=== PATIENT | female | born 1980 | race Two or more races ===

== ENCOUNTER 2024-12-29 15:48 | Emergency (ER) | payer MEDICAID, SELFPAY ==
[2024-12-29 15:49] VITALS: BMI 25.4
[2024-12-29 16:32] VITALS: BP 150/88; PULSE 84; RESP 18; TEMP 36.8; O2SAT 98
--- NOTE | 2024-12-29 16:44 | XR_ITS ---
Examination: CT soft tissue neck, with intravenous contrast. 2-D coronal reconstructions. 2-D sagittal reconstructions. Date and time of exam :December 29, 2024 1804 hours INDICATIONS: Left-sided neck swelling beginning 2 months ago. CTDI: vol (mGy):11.6 DLP: (mGycm):287 Technique: 1.25 mm axial sections of the neck of the obtained. Coronal and sagittal reconstructions have been obtained. Intravenous contrast administered 50 cc of Isovue 370. Low dose protocols were performed. One or more of the following dose reduction techniques were used; automated exposure control, adjustment of the mA and/or KV according to patient size, use of iterative reconstruction technique. 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
--- NOTE | 2024-12-29 16:46 | PD.EDSKIN ---
ED Skin Abcess FB-RME/HPI General Chief complaint: Skin/Abscess/Foreign Body Stated complaint: SWELLIING TO LEFT SIDE NECK Time Seen by Provider: 12/29/24 16:37 Arrival date/time: 12/29/24 15:48 RME / HPI RME / HPI narrative: 44-year-old female with history of diabetes hypertension is here today for atraumatic swelling in her left anterior neck for 2 months. She has no cough or difficulty breathing. Has no drooling or trismus. Has no fevers or chills. No changes in weight. She has no other similar areas of swelling in her body. She was seen by her PCP and ultrasound was obtained, she has not received the results of this. Related Data Home Medications ?Medication ?Instructions ?Recorded ?Confirmed vits no.[id number]-[id number] fum 1 tab PO QDAY 10/21/23 11/17/23 27 mg iron-folic acid 800 mcg tablet ( Vitamin) ondansetron 4 mg disintegrating 4 mg PO Q8H PRN Nausea And Vomiting 11/17/23 11/17/23 tablet Previous Rx's ?Medication ?Instructions ?Recorded blood sugar diagnostic (Blood #100 ea 11/19/23 Glucose Test strips) blood-glucose meter #1 ea 11/19/23 labetalol 200 mg tablet 200 mg PO BID 30 days #60 tabs 11/19/23 lancets #200 ea 11/19/23 acetaminophen 300 mg-codeine 30 mg 2 tab PO Q8H PRN pain #20 tabs 12/30/24 tablet Allergies Allergy/AdvReac Type Severity Reaction Status Date / Time No Known Allergies Allergy Verified 12/29/24 15:52 Course Quality Measures none Orders Category Date Time Status CT Screening NOW Care 12/29/24 16:45 Completed Insert IV NOW Care 12/29/24 16:53 Completed Transfer/Discharge Stat Discharge 12/29/24 21:[address] soft tissue neck w con Stat Exams 12/29/24 16:44 Completed CBC Stat Lab 12/29/24 16:56 Completed CMP [Comprehensive Metabolic Panel] Stat Lab 12/29/24 16:56 Completed HCG,Qualitative Serum Stat Lab 12/29/24 16:56 Completed TSH [Thyroid Stimulating Hormone] Stat Lab 12/29/24 16:56 Completed Morphine Inj Med 12/29/24 16:45 Discontinued 2 mg IVP X1 ONE Morphine Inj Med 12/29/24 21:37 Discontinued 4 mg IVP X1 ONE Morphine Inj Med 12/30/24 01:48 Discontinued 4 mg IVP X1 ONE Ondansetron Inj [Zofran Inj] Med 12/30/24 01:48 Discontinued 4 mg IVP X1 ONE Vital Signs Vital signs: Vital Signs Temperature 98.3 F 12/29/24 16:32 Pulse Rate 84 12/29/24 16:32 Respiratory Rate 18 12/29/24 16:32 Blood Pressure 150/88 H 12/29/24 16:32 Pulse Oximetry (%) 98 12/29/24 16:32 Oxygen Delivery Method Room Air 12/29/24 16:32 Skin / Abscess / Foreign Body MDM Narrative MDM Narrative:: 44-year-old female is here today with painful mass to the left side of neck that has been developing for the last 2 months. She saw her PCP for this, an ultrasound was obtained, however she does not see the results. She states the mass has gotten larger, more painful, so she came here. On exam, patient has a visible mass at the left anterior aspect of the neck. Is quite tender to touch. There is mild warmth, no erythema, or fluctuance. No open wounds or drainage. Her CBC reveals no leukocytosis, there is no metabolic derangement mild hyperglycemia is present at 131. CT was obtained is concerning for what the radiologist scribes as a large necrotic mass at the left carotid triangle. Edema from the mass is near the airway epiglottis is mildly thickened. Details of the CT were discussed with the patient. We discussed options. Patient needs ENT and oncology consultation which we do not have available here. She is agreeable to transfer to a higher level of care. This discussed with the attending ER physician and our charge nurse to assist with this. Case signed out to Dr. Sparks at shift change. Patient data External records reviewed:: None Clinical information provided by:: patient Social determinants that could affect healthcare access:: none Patient has the following chronic illnesses:: Hypertension How is presenting disease/condition affected by chronic disease/condition?: uneffected by Evaluation data The following diagnostics were reviewed and interpreted by me:: lab results (No leukocytosis, no metabolic derangement, there is hyperglycemia at 131) and radiology exam(s) (CT is concerning for necrotic mass at the left carotid triangle near the oropharyngeal airway, epiglottis is mildly thickened.) Lab and/or radiology exams considered but not ordered:: n/a Interpretation Summary: Findings concerning for either abscess or metastatic disease Medications / Prescriptions Medications or Prescriptions considered but not ordered:: n/a Medication administrations:: Medication Administration History Discontinued Medications Morphine Sulfate (Morphine Sulf Inj 10 Mg/Ml Vial) 2 mg IVP X1 ONE Stop: 12/29/24 16:46 Last Admin: 12/29/24 16:56 Dose: 2 mg Documented By: DB Morphine Sulfate (Morphine Sulf Inj 10 Mg/Ml Vial) 4 mg IVP X1 ONE Stop: 12/29/24 21:38 Last Admin: 12/29/24 21:48 Dose: 4 mg Documented By: BD Morphine Sulfate (Morphine Sulf Inj 10 Mg/Ml Vial) 4 mg IVP X1 ONE Stop: 12/30/24 01:49 Last Admin: 12/30/24 02:01 Dose: 4 mg Documented By: BD Ondansetron HCl (Ondansetron Inj 2 Mg/Ml Inj 2 Ml) 4 mg IVP X1 ONE; Protocol Stop: 12/30/24 01:49 Last Admin: 12/30/24 02:01 Dose: 4 mg Documented By: BD See above Consultations Consultation(s) initiated? (list below): Yes Diagnosis Skin/Abscess Differential Diagnosis: abscess of skin or subcutaneous tissue, cellulitis and other (Lymphadenitis) Most likely diagnosis given after review of the tests above:: Abscess versus metastatic disease Admission Indicated Admission indicated?: indicated Admission Request Was there a request for admission?: Yes Admission Attestation Admission request attestation: Discussed case with [] from Hospitalist service regarding admission. Discussed patients ED course, exam findings, labs, and radiology results. The Hospitalist [agrees,declines] to accept the patient for admission. Disposition Plan Disposition Plan: Transfer Discharge Plan Plan Patient Disposition: HOME (Self Care) Patient condition on transfer: Stable Prescriptions/Referrals Prescriptions/Med Rec: New acetaminophen-codeine 300-30 mg tablet 2 tab PO Q8H MDD 6 PRN (Reason: pain) Qty: 20 0RF No Action ondansetron 4 mg tablet,disintegrating 4 mg PO Q8H PRN (Reason: Nausea And Vomiting) labetalol 200 mg tablet 200 mg PO BID 30 Days Qty: 60 2RF (DME) blood-glucose meter Kit See Rx Instructions .Route Qty: 1 0RF Rx Instructions: As directed, four times a day (fasting, 1hr after BF, 1hr after lunch, 1hr after dinner) (DME) lancets Misc See Rx Instructions .Route Qty: 200 0RF Rx Instructions: As directed (DME) Blood Glucose Test Strip See Rx Instructions .Route Qty: 100 0RF Rx Instructions: As directed Vitamin 27 mg iron- 800 mcg Tablet 1 tab PO QDAY Referrals: Adam Sherman MD [Primary Care Provider] - In 1 week Problem List Clinical Impression: Mass in neck Patient/Caregiver Discharge Instructions Discharge Activity: activity as tolerated Education Materials: ED Tumor, Uncertain Cause Additional Instructions: Discharge Instructions from Dr. Sparks printed for you: 1. After evaluation, the cause of your left-sided neck mass was not determined. 2. We talked to many ENT (wdl-aptc-amprit) specialists and nearby hospitals to transfer you. But they all determined emergent transfer is not indicated. 3. Tylenol with codeine for severe pain. 4. See a private doctor on 12/31/2024 for recheck and further care. Ask to review all test results and official radiology reports, to make sure you receive all necessary follow-ups and monitoring. Ask for help getting biopsy of the mass and referrals to see specialists. To help you find the cause and treatment. 5. You have the option to come back to this ER on 12/31/2024 during the day. Our interventional radiologist may be able to perform the biopsy (biopsy of the mass and biopsy of a nearby lymph node). 6. See attached papers for referral we started for ENT specialist (Dr. Aguero) at [facility] in [place]. Call the number and try to get an appointment. 7. Seek immediate medical care with intolerable pain, breathing difficulty, swallowing difficulty, or with any concerns. Instrucciones de angely del Dr. Sparks impresas para usted: 1. Tras la evaluaci?n, no se determin? la causa de price masa cervical izquierda. 2. Consultamos con varios otorrinolaring?logos y hospitales cercanos para price traslado. Sin embargo, todos determinaron que no es necesario un traslado urgente. 3. Tylenol con code?na para el dolor intenso. 4. Consulte con un m?dico particular el 12/31/2024 para harmeet nueva revisi?n y atenci?n adicional. Solicite la revisi?n de todos los resultados de las pruebas y los informes radiol?gicos oficiales para asegurarse de recibir todos los seguimientos y la monitorizaci?n necesarios. Solicite ayuda para obtener harmeet biopsia de la masa y derivaciones a especialistas para ayudarle a encontrar la causa y el tratamiento. 5. Tiene la opci?n de regresar a esta tanja de urgencias el 12/31/2024 panda el d?a. Nuestro radi?logo intervencionista podr?a realizar la biopsia (biopsia de la masa y biopsia de un ganglio linf?pranav cercano). 6. Consulte los documentos adjuntos para la derivaci?n que iniciamos con el especialista en otorrinolaringolog?a (Dr. Aguero) en [facility] en [place]. Llame al n?víctor e intente conseguir harmeet bety. 7. Busque atenci?n m?dica inmediata si presenta dolor insoportable, dificultad para respirar, dificultad para tragar o cualquier otra inquietud. Print Language: Marshallese Stand Alone Forms: Estelita Award Info., Patient Portal Info Letter
[2024-12-29] MEDS: MORPHINE SULF INJ 10 MG/ML VIAL 2 MG IVP (16:56)
[2024-12-29 17:06] LABS: Basophils # (Auto) 0.1 Thou/mm3 (0.0-0.2); Basophils % (Auto) 1 % (0-2.5); Eosinophils # (Auto) 0.2 Thou/mm3 (0.0-0.5); Eosinophils % (Auto) 2 % (0-10); Hematocrit 32.6 % (36.0-46.0); Hemoglobin 10.9 g/dL (12.0-16.0); Immature Granulocytes Auto 0.04 Thou/mm3 (0.00-0.00); Lymphocytes # (Auto) 2.9 Thou/mm3 (1.0-4.8); Lymphocytes % (Auto) 29 % (10-50); Mean Corpuscular HGB Conc 33.4 g/dl (31.0-37.0); Mean Corpuscular Hemoglobin 25.1 pg (25.0-35.0); Mean Corpuscular Volume 75 fL (80-100); Monocytes # (Auto) 0.7 Thou/mm3 (0.0-0.8); Monocytes % (Auto) 7 % (0-12); Neutrophils # (Auto) 6.1 Thou/mm3 (1.8-7.7); Neutrophils % (Auto) 62 % (37-80); Nucleated Red Blood Cell # 0.00 Thou/mm3 (0.00-0.00); Nucleated Red Blood Cell % 0 /100 WBC (0); Platelet Count 466 Thou/mm3 (140-440); RDW Standard Deviation 38.1 fL (36.4-46.3); Red Blood Count 4.35 Miln/mm3 (4.00-5.20); White Blood Count 10.0 Thou/mm3 (3.6-11.0)
[2024-12-29 17:30] LABS: Alanine Aminotransferase 18 U/L (10-49); Albumin, Serum 4.4 gm/dL (3.5-5.0); Albumin/Globulin Ratio 1.3 (1.2-2.2); Alkaline Phosphatase 135 U/L (46-116); Anion Gap 12 (7-16); Aspartate Amino Transferase 15 U/L (0-34); BUN/Creatinine Ratio 13 Ratio (12-20); Bilirubin,Total < 0.2 mg/dL (0.3-1.2); Blood Urea Nitrogen 12 mg/dL (9-23); Calcium 9.1 mg/dL (8.3-10.6); Calcium (Corrected) 9.1 mg/dL (8.5-10.1); Carbon Dioxide 25.5 mMol/L (20.0-31.0); Chloride 101 mMol/L (98-107); Creatinine (Component) 0.9 mg/dL (0.6-1.3); Estimated Creatinine Clearance 76.7 mL/min (>60); Globulin 3.4 gm/dL (2.3-3.5); Glucose 131 mg/dL (74-106); Osmolality,Calculated 277 (275-295); Potassium 3.6 mMol/L (3.4-5.1); Sodium 138 mMol/L (136-145); Thyroid Stimulating Hormone 4.16 uIU/mL (0.55-4.78); Total Protein 7.8 gm/dL (5.7-8.2); eGFR > 60 See Note
[2024-12-29 17:35] LABS: HCG,Qualitative Serum Negative
[2024-12-29 20:59] VITALS: BP 190/119; BP 194/108; PULSE 81; RESP 18; TEMP 36.9; O2SAT 98
[2024-12-29 21:21] VITALS: BP 172/94; PULSE 70
[2024-12-29] MEDS: MORPHINE SULF INJ 10 MG/ML VIAL 4 MG IVP (21:48)
--- NOTE | 2024-12-29 22:31 | PC.NURSE ---
[facility]122 [facility] CONTACTED T SENTM PER [facility].
--- NOTE | 2024-12-29 22:32 | PC.NURSE ---
2136 [facility] CONTACTED T SENT.
--- NOTE | 2024-12-29 22:47 | PC.NURSE ---
[facility] TRANSFER ANGEL CALLED TO GET UPDATED INFO FOR POSSIBLE BED WILL CALL BACK
[2024-12-29 23:00] VITALS: BP 131/92; PULSE 76; RESP 16; TEMP 36.7; O2SAT 98
--- NOTE | 2024-12-29 23:50 | PD.EDADDENDU ---
Emergency Room Addendum <Brielle Hernandez - Last Filed: 12/30/24 04:34> Addendum Narrative: I took over the care from previous shift physician at 11 PM on 12/29/2024. See previous notes for complete H & P and ED course. Diagnoses include: Mass in neck. Treatment here included Morphine 4 mg, Zofran 4 mg. 2351: I discussed the case with Yara from [facility]. About the presentation and exam and diagnostics and treatments here. And need of further care in their hospital. Will be in contact with ENT specialist. 0049: Yara from [facility] called back. Patient denied for transfer. 0139: I discussed the case with [facility]. About the presentation and exam and diagnostics and treatments here. And need of further care in their hospital. 0149: [facility] called stating ENT is requesting images of neck mass. 0351: Based on my best medical judgment, made decision no further evaluation or treatment indicated at this time.? Patient understands and agrees to the discharge instructions customized and printed, see below. Discharge Instructions from Dr. Sparks printed for you: 1. After evaluation, the cause of your left-sided neck mass was not determined. 2. We talked to many ENT (vci-wbdp-khknxh) specialists and nearby hospitals to transfer you. But they all determined emergent transfer is not indicated. 3. Tylenol with codeine for severe pain. 4. See a private doctor on 12/31/2024 for recheck and further care. Ask to review all test results and official radiology reports, to make sure you receive all necessary followups and monitoring. Ask for help getting biopsy of the mass and referrals to see specialists. To help you find the cause and treatment. 5. You have the option to come back to this ER on 12/31/2024 during the day. Our interventional radiologist may be able to perform the biopsy (biopsy of the mass and biopsy of a nearby lymph node). 6. See attached papers for referral we started for ENT specialist (Dr. Aguero) at [facility] in [place]. Call the number and try to get an appointment. 7. Seek immediate medical care with intolerable pain, breathing difficulty, swallowing difficulty, or with any concerns. Coleman Sparks MD <Coleman Sparks MD - Last Filed: 12/30/24 05:49> Addendum Narrative: I took over the care from BETTE Mckinney at 11 PM on 12/29/2024. See previous notes for complete H & P and ED course. Diagnoses include: Left neck mass. Treatment here included supportive care with morphine. 2351: I discussed the case with Yara from [facility]. About the presentation and exam and diagnostics and treatments here. And need of further care in their hospital. Will be in contact with ENT specialist. 0049: Yara from [facility] called back. Patient denied for transfer, their current ENT regional hr manager only treats thyroid conditions. 0139: I discussed the case with [facility]. About the presentation and exam and diagnostics and treatments here. And need of further care in their hospital. Declined and recommended outpatient care. Based on my best medical judgment, made decision no further evaluation or treatment indicated at this time.? Patient understands and agrees to the discharge instructions customized and printed, see below. Discharge Instructions from Dr. Sparks printed for you: 1. After evaluation, the cause of your left-sided neck mass was not determined. 2. We talked to many ENT (nbm-zkdt-[id number]) specialists and nearby hospitals to transfer you. But they all determined emergent transfer is not indicated. 3. Tylenol with codeine for severe pain. 4. See a private doctor on 12/31/2024 for recheck and further care. Ask to review all test results and official radiology reports, to make sure you receive all necessary followups and monitoring. Ask for help getting biopsy of the mass and referrals to see specialists. To help you find the cause and treatment. 5. You have the option to come back to this ER on 12/31/2024 during the day. Our interventional radiologist may be able to perform the biopsy (biopsy of the mass and biopsy of a nearby lymph node). 6. See attached papers for referral we started for ENT specialist (Dr. Aguero) at [facility] in [place]. Call the number and try to get an appointment. 7. Seek immediate medical care with intolerable pain, breathing difficulty, swallowing difficulty, or with any concerns. Coleman Sparks MD
--- NOTE | 2024-12-30 00:54 | PC.NURSE ---
[facility], STATES NEEDS HIGHER LEVEL OF CARE
[2024-12-30 01:00] VITALS: BP 114/68; PULSE 77; RESP 16; TEMP 36.9; O2SAT 96
[2024-12-30] MEDS: ONDANSETRON INJ 2 MG/ML INJ 2 ML 4 MG IVP (02:01)
[2024-12-30] MEDS: MORPHINE SULF INJ 10 MG/ML VIAL 4 MG IVP (02:01)
--- NOTE | 2024-12-30 02:09 | PC.NURSE ---
[facility] CONTACTED NO ENT SERVICE. 2135 [facility] CONTACTED NO ENT SERVICES. [address] [facility] [place] [place] CONTACTED NO ENT SERVICES. 2353 [facility] CONTACTED THEIR ENT CANNOT WORK ON THIS PT NEEDS HIGHER LEVEL OF CARE. 0118 [facility] CONTACTED PKT SENT, IMAGES PUSHED.
[2024-12-30 03:00] VITALS: BP 129/81; PULSE 70; RESP 16; TEMP 36.8; O2SAT 94
[2024-12-30 04:10] VITALS: BP 120/90; PULSE 64; RESP 16; TEMP 37.2; O2SAT 94
== END 2024-12-30 04:46 | disposition home or self-care (01) ==
PROVIDERS: Physician Assistant Medical; Emergency Provider Emergency Medicine; PCP Family Medicine
DX: R22.1 Localized swelling, mass and lump, neck (principal)
CPT/HCPCS: 36415; 70491; 80053; 84443; 84703; 85025; 96374; 96376; 99285; A4649; J2270; J2405; Q9967

== ENCOUNTER 2024-12-31 07:34 | Emergency (ER) | payer MEDICAID, SELFPAY ==
[2024-12-31 07:40] VITALS: BMI 28.9
[2024-12-31 07:48] VITALS: BP 127/84; PULSE 83; RESP 17; TEMP 37.8; O2SAT 98
--- NOTE | 2024-12-31 10:34 | PC.NURSE ---
PT CALLED BACK TO [facility] @10:32 NO RESPONSE. CHECKED LOBBY AND OUTSIDE NO RESPONSE
== END 2024-12-31 10:48 | disposition left against medical advice (07) ==
LOC: SERX 08:13
PROVIDERS: Emergency Provider Physician Assistant; PCP Nurse Practitioner Women's Health
DX: Z53.21 Procedure and treatment not carried out due to patient leaving prior to being seen by health care provider (principal)
CPT/HCPCS: 99281

== ENCOUNTER 2025-01-19 17:10 | Emergency (ER) | payer MEDICAID, SELFPAY ==
[2025-01-19 17:12] VITALS: BMI 27.4
[2025-01-19 17:26] VITALS: BP 171/81; PULSE 100; RESP 20; TEMP 37.1; O2SAT 99
--- NOTE | 2025-01-19 17:51 | PD.EDSKIN ---
ED Skin Abcess FB-RME/HPI General Chief complaint: Skin/Abscess/Foreign Body Stated complaint: THINKS BIOPSY SITE TO THROAT INFECTED Time Seen by Provider: 01/19/25 17:17 Arrival date/time: 01/19/25 17:10 RME / HPI RME / HPI narrative: 44-year-old female patient was brought in by family for evaluation neck pain. Patient had biopsy to the thyroid, 2 weeks ago in [place], and since then has been having pain, described as dull ache, severity moderate. Patient was seen here 5 days ago and was prescribed Tylenol with codeine, patient came in asking for the same prescription. Patient also complained that the wound is open. There is no redness no drainage noted. Patient is able to swallow without any difficulty. Denies any shortness of breath. Denies any fever. Denies any other complaints no medication was taken prior to ER visit. Related Data Home Medications ?Medication ?Instructions ?Recorded ?Confirmed vits no.124-ferrous fum 1 tab PO QDAY 10/21/23 11/17/23 27 mg iron-folic acid 800 mcg tablet ( Vitamin) ondansetron 4 mg disintegrating 4 mg PO Q8H PRN Nausea And Vomiting 11/17/23 11/17/23 tablet Previous Rx's ?Medication ?Instructions ?Recorded blood sugar diagnostic (Blood #100 ea 11/19/23 Glucose Test strips) blood-glucose meter #1 11/19/23 labetalol 200 mg tablet 200 mg PO BID 30 days #60 tabs 11/19/23 lancets #200 ea 11/19/23 acetaminophen 300 mg-codeine 30 mg 2 tab PO Q8H PRN pain #20 tabs 12/30/24 tablet acetaminophen 300 mg-codeine 30 mg 1 tab PO Q8H PRN pain #20 tabs 01/19/25 tablet sulfamethoxazole 800 1 tab PO QDAY 7 days #7 tabs 01/19/25 mg-trimethoprim 160 mg tablet (Bactrim DS) Allergies Allergy/AdvReac Type Severity Reaction Status Date / Time No Known Allergies Allergy Verified 01/19/25 17:17 Review of Systems Review of Systems Narrative Review of Systems: Review of system reviewed and within normal limits except mentioned in HPI ED Exam Narrative Physical exam: VITAL SIGNS: Reviewed. GENERAL APPEARANCE: Alert and interactive, follows commands, no acute distress, HEAD AND FACE: Non-traumatic. ENT: PERRL, pink conjunctivitis, eyelid no trauma, Mucous membrane moist. 1 cm gaping/wound dehiscence left lateral anterior neck inferior, no redness noted no drainage noted no swelling noted no masses palpable. NECK: Supple, nontender, no nuchal rigidity. CHEST: No tenderness, no crepitus, no paradoxical movement, no retractions. LUNGS: Clear, well ventilated, symmetric, no rales, no wheezing, no ronchi, no stridor, good breath sounds bilaterally. HEART: Regular rate, regular rhythm, no murmur, no gallops. ABDOMEN: Soft, positive bowel sounds, nondistended, no guarding, nontender, no rebound, no masses, RECTAL: Deferred. GENITAL: Deferred. NEUROLOGICAL: Gross motor function intact sensory function intact, Appropriate for age. MUSCULOSKELETAL: low back nontender, full range of motion. EXTREMITIES: Nontender, full range of motion. SKIN: Color pink, dry, no rash, no lacerations, no abrasions, no contusions. LYMPHATICS: Deferred. Course Quality Measures none Orders Category Date Time Status ACETAMINOPHEN w/COD 300-30 [Tylenol w/Cod #3] Med 01/19/25 17:48 Once 1 tab PO X1 ONE Trimethoprim/Sulfa 160/800 Ds [Bactrim Ds] Med 01/19/25 17:48 Once 1 tab PO X1 ONE Vital Signs Vital signs: Vital Signs Temperature 98.7 F 01/19/25 17:26 Pulse Rate 100 01/19/25 17:26 Respiratory Rate 20 01/19/25 17:26 Blood Pressure 171/81 H 01/19/25 17:26 Pulse Oximetry (%) 99 01/19/25 17:26 Oxygen Delivery Method Room Air 01/19/25 17:26 Skin / Abscess / Foreign Body MDM Narrative MDM Narrative:: 44-year-old female patient was brought in by family for evaluation neck pain. Patient had biopsy to the thyroid, 2 weeks ago in [place], and since then has been having pain, described as dull ache, severity moderate. Patient was seen here 5 days ago and was prescribed Tylenol with codeine, patient came in asking for the same prescription. Patient also complained that the wound is open. There is no redness no drainage noted. Patient is able to swallow without any difficulty. Denies any shortness of breath. Denies any fever. Denies any other complaints no medication was taken prior to ER visit. Imaging is not needed at this time. Lab workup is not needed at this time. Patient is afebrile. Patient had no difficulty swallowing. Patient denies any shortness of breath. Swallowing normal. Patient was advised to follow-up closely with surgeon who did a biopsy in [place] next week. Patient agrees with the plan. I will start this patient on Bactrim for small wound dehiscence. Also sent home on Tylenol with codeine. Patient appears nontoxic and hemodynamically stable .Decision to discharge the patient. The patient/family was given an opportunity to ask questions and understood their discharge instructions. Discharge instructions specifically included follow up provider and time frame, current and/or new medications and possible side effects, indications for sooner follow up or return to the emergency department, and the expected course of current diagnosis. Patient reports feeling better as well and giving evidence of significant clinical improvement, I believe patient is now a candidate for discharge. Patient data External records reviewed:: None Clinical information provided by:: patient Social determinants that could affect healthcare access:: none Patient has the following chronic illnesses:: None How is presenting disease/condition affected by chronic disease/condition?: no chronic disease Evaluation data The following diagnostics were reviewed and interpreted by me:: other (specify) (None) Lab and/or radiology exams considered but not ordered:: None Interpretation Summary: None Medications / Prescriptions Medications or Prescriptions considered but not ordered:: None Medication administrations:: Medication Administration History Discontinued Medications Acetaminophen/Codeine Phosphate (Acetaminophen W/Cod 300-30 Tablet) 1 tab PO X1 ONE Stop: 01/19/25 17:49 Last Admin: 01/19/25 17:55 Dose: 1 tab Trimethoprim/Sulfamethoxazole (Trimethoprim/Sulfa 160/800 Ds Tablet) 1 tab PO X1 ONE Stop: 01/19/25 17:49 Last Admin: 01/19/25 17:55 Dose: 1 tab Tylenol with codeine, Bactrim Consultations Consultation(s) initiated? (list below): No Diagnosis Skin/Abscess Differential Diagnosis: other (Wound dehiscence, neck pain, surgical biopsy pain) Most likely diagnosis given after review of the tests above:: Wound dehiscence, surgical biopsy. Admission Indicated Admission indicated?: not indicated Admission Request Was there a request for admission?: No Disposition Plan Disposition Plan: Discharge Discharge Attestation Discharge Attestation: The patient was given an opportunity to ask questions and understood the discharge instructions. Discharge instructions specifically effects, indications for sooner follow up or return to the emergency department, and the expected course of current diagnosis. Patient condition: Stable Discharge Plan Plan Patient Disposition: HOME (Self Care) Discharge Disposition comment: Stable Prescriptions/Referrals Prescriptions/Med Rec: New sulfamethoxazole-trimethoprim [Bactrim DS] 800-160 mg tablet 1 tab PO QDAY 7 Days Qty: 7 0RF acetaminophen-codeine 300-30 mg tablet 1 tab PO Q8H PRN (Reason: pain) Qty: 20 0RF No Action ondansetron 4 mg tablet,disintegrating 4 mg PO Q8H PRN (Reason: Nausea And Vomiting) labetalol 200 mg tablet 200 mg PO BID 30 Days Qty: 60 2RF (DME) blood-glucose meter Kit See Rx Instructions .Route Qty: 1 0RF Rx Instructions: As directed, four times a day (fasting, 1hr after BF, 1hr after lunch, 1hr after dinner) (DME) lancets Misc See Rx Instructions .Route Qty: 200 0RF Rx Instructions: As directed (DME) Blood Glucose Test Strip See Rx Instructions .Route Qty: 100 0RF Rx Instructions: As directed Vitamin 27 mg iron- 800 mcg Tablet 1 tab PO QDAY acetaminophen-codeine 300-30 mg tablet 2 tab PO Q8H MDD 6 PRN (Reason: pain) Qty: 20 0RF Problem List Clinical Impression: Pain at surgical site, Dehiscence of wound Patient/Caregiver Discharge Instructions Discharge Activity: activity as tolerated Education Materials: ED Post Op Wound Check, Infection Additional Instructions: Thank you for the opportunity for serving you today. You are stable for discharged . You are advised to: Follow-up with your PCP in 1 to 2 days Follow-up with your surgeon who did a biopsy of your neck in [place] this coming Tuesday Return to ED for worsening of symptoms Increase oral fluids Take medication as prescribed Daily dressing with bacitracin as needed Print Language: Solomon Islander Stand Alone Forms: Estelita Award Info., Patient Portal Info Letter BETTE/JILLIAN Supervising Physician BETTE/JILLIAN Supervising Physician: MD Des
[2025-01-19] MEDS: ACETAMINOPHEN w/COD 300-30 TABLET 1 TAB PO (17:55)
[2025-01-19] MEDS: TRIMETHOPRIM/SULFA 160/800 DS TABLET 1 TAB PO (17:55)
== END 2025-01-19 18:25 | disposition home or self-care (01) ==
PROVIDERS: Emergency Provider Emergency Medicine; PCP Family Medicine
DX: T81.30XA Disruption of wound, unspecified, initial encounter (principal); G89.18 Other acute postprocedural pain; Y84.8 Other medical procedures as the cause of abnormal reaction of the patient, or of later complication, without mention of misadventure at the time of the procedure
CPT/HCPCS: 99283; A9270

== ENCOUNTER 2025-02-04 10:22 | Emergency (ER) | payer MEDICAID, SELFPAY ==
[2025-02-04 10:45] VITALS: BP 135/87; PULSE 89; RESP 17; TEMP 37.5; O2SAT 97
--- NOTE | 2025-02-04 10:52 | XR_ITS ---
Examination: AP lateral chest 2 views TECHNIQUE:: Sitting AP lateral chest 2 views Date and time: February 04, 2025 1119 hours INDICATIONS: Chest pain today FINDINGS: Normal heart size. Lungs are clear. The osseous structures are intact IMPRESSION: No active disease
--- NOTE | 2025-02-04 10:52 | EKG_ITS ---
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
--- NOTE | 2025-02-04 10:52 | PD.EDRME ---
Rapid Medical Screening Exam RME Arrival date/time: 02/04/25 10:22 44-year-old female with no known medical history presents to the emergency room with a chief complaint of a syncopal episode that occurred today at 1 AM. Patient states that she has been having dizziness, lightheadedness and near syncopal episodes. Patient recently had a biopsy of her thyroid on the left side of her neck. Patient also states she has been treated for tuberculosis. I have greeted and performed a focused initial assessment of this patient. A comprehensive ED assessment and evaluation of the patient, analysis of all test results, and completion of the medical decision making process will be conducted by additional ED providers. Chief Complaint: Syncope / Near Syncope Time Seen by Provider: 02/04/25 10:31 Vital signs: Vital Signs Temperature 99.5 F 02/04/25 10:45 Pulse Rate 89 02/04/25 10:45 Respiratory Rate 17 02/04/25 10:45 Blood Pressure 135/87 H 02/04/25 10:45 Pulse Oximetry (%) 97 02/04/25 10:45 Oxygen Delivery Method Room Air 02/04/25 10:45 Vital signs reviewed by provider: Yes
[2025-02-04 12:15] LABS: Lactate (Lactic Acid) 1.0 mMol/L (0.4-2.0)
[2025-02-04 12:21] LABS: Basophils # (Auto) 0.0 Thou/mm3 (0.0-0.2); Basophils % (Auto) 0 % (0-2.5); Eosinophils # (Auto) 0.0 Thou/mm3 (0.0-0.5); Eosinophils % (Auto) 0 % (0-10); Hematocrit 34.2 % (36.0-46.0); Hemoglobin 11.3 g/dL (12.0-16.0); Immature Granulocytes Auto 0.04 Thou/mm3 (0.00-0.00); Lymphocytes # (Auto) 1.3 Thou/mm3 (1.0-4.8); Lymphocytes % (Auto) 15 % (10-50); Mean Corpuscular HGB Conc 33.0 g/dl (31.0-37.0); Mean Corpuscular Hemoglobin 24.9 pg (25.0-35.0); Mean Corpuscular Volume 76 fL (80-100); Monocytes # (Auto) 0.3 Thou/mm3 (0.0-0.8); Monocytes % (Auto) 4 % (0-12); Neutrophils # (Auto) 7.0 Thou/mm3 (1.8-7.7); Neutrophils % (Auto) 80 % (37-80); Nucleated Red Blood Cell # 0.00 Thou/mm3 (0.00-0.00); Nucleated Red Blood Cell % 0 /100 WBC (0); Platelet Count 393 Thou/mm3 (140-440); RDW Standard Deviation 42.5 fL (36.4-46.3); Red Blood Count 4.53 Miln/mm3 (4.00-5.20); White Blood Count 8.7 Thou/mm3 (3.6-11.0)
[2025-02-04 12:27] LABS: Collection Type, Urine Clean Catch
[2025-02-04 12:35] LABS: Bilirubin,Urine Negative (Negative); Blood,Urine Trace (Negative); Clarity,Urine Turbid (Clear/Hazy); Color,Urine Lt-Yellow (Lt Yel-Yel); Glucose, Urine Negative (Negative); Ketones,Urine Negative (Negative); Leukocyte Esterase,Urine Positive (Negative); Nitrite,Urine Negative (Negative); PH,Urine 6.0 (5.0-7.0); Protein,Urine Negative (Neg - Trace); RBC,Urine 7 /hpf (0-3); Specific Gravity,Urine 1.014 (1.001-1.035); Squamous Epithelial Cell,Urine 11 /hpf (0-5); Urobilinogen,Urine Negative mg/dL (0.0-1.0); WBC,Urine 13 /hpf (0-5)
[2025-02-04 12:37] LABS: B-Type Natriuretic Peptide < 20 pg/mL (0-100); INR 1.0 (0.9-1.3); Partial Thromboplastin Time 22.2 Seconds (22.0-36.0); Prothrombin Time 10.6 Seconds (9.0-12.2)
[2025-02-04 12:50] LABS: Alanine Aminotransferase 9 U/L (10-49); Albumin, Serum 4.9 gm/dL (3.5-5.0); Albumin/Globulin Ratio 1.6 (1.2-2.2); Alkaline Phosphatase 119 U/L (46-116); Anion Gap 9 (7-16); Aspartate Amino Transferase 21 U/L (0-34); BUN/Creatinine Ratio 6 Ratio (12-20); Bilirubin,Total 0.2 mg/dL (0.3-1.2); Blood Urea Nitrogen < 5 mg/dL (9-23); Calcium 9.4 mg/dL (8.3-10.6); Calcium (Corrected) 9.4 mg/dL (8.5-10.1); Carbon Dioxide 27.2 mMol/L (20.0-31.0); Chloride 103 mMol/L (98-107); Creatinine (Component) 0.8 mg/dL (0.6-1.3); Globulin 3.1 gm/dL (2.3-3.5); Glucose 126 mg/dL (74-106); Osmolality,Calculated 276 (275-295); Potassium 3.8 mMol/L (3.4-5.1); Procalcitonin < 0.04 ng/ml (0.0-0.49); Sodium 139 mMol/L (136-145); Total Protein 8.0 gm/dL (5.7-8.2); Troponin I < 0.020 ng/mL (0.0-0.045); eGFR > 60 See Note
--- NOTE | 2025-02-04 14:46 | PD.EDSYNC ---
ED Syncope RME/HPI General Chief Complaint: Syncope / Near Syncope Stated Complaint: Syncope today at 0100, wound left neck Time Seen by Provider: 02/04/25 10:31 Arrival date/time: 02/04/25 10:22 RME / HPI RME / HPI narrative: 02/04/25 10:22 44-year-old female with no known medical history presents to the emergency room with a chief complaint of a syncopal episode that occurred today at 1 AM. Patient states that she has been having dizziness, lightheadedness and near syncopal episodes. Patient recently had a biopsy of her thyroid on the left side of her neck. Patient also states she has been treated for tuberculosis. I have greeted and performed a focused initial assessment of this patient. A comprehensive ED assessment and evaluation of the patient, analysis of all test results, and completion of the medical decision making process will be conducted by additional ED providers. DR. PERDOMO MAIN ED EVALUATION 44 year old female presents to the ED for evaluation following a syncopal episode earlier today. Patient states she woke up at 01:00 AM to use the restroom and during that time had blurred vision, global weakness, and overall felt unwell. States because of the weakness she required assistance from her to walk to the restroom and while in the restroom had a syncopal episode and caught by . Followed by nausea and vomiting. No other associated symptoms reported. Denies fevers, chills, chest pain, cough, shortness of breath, abdominal pain, diarrhea, or urinary symptoms. Patient additionally reports she underwent a neck biopsy on 01/04/2025 in [facility] and feels the wound has not fully closed. Related Data Home Medications ?Medication ?Instructions ?Recorded ?Confirmed vits no.124-ferrous fum 1 tab PO QDAY 10/21/23 11/17/23 27 mg iron-folic acid 800 mcg tablet ( Vitamin) ondansetron 4 mg disintegrating 4 mg PO Q8H PRN Nausea And Vomiting 11/17/23 11/17/23 tablet Previous Rx's ?Medication ?Instructions ?Recorded blood sugar diagnostic (Blood #100 ea 11/19/23 Glucose Test strips) blood-glucose meter #1 ea 11/19/23 labetalol 200 mg tablet 200 mg PO BID 30 days #60 tabs 11/19/23 lancets #200 ea 11/19/23 acetaminophen 300 mg-codeine 30 mg 2 tab PO Q8H PRN pain #20 tabs 12/30/24 tablet acetaminophen 300 mg-codeine 30 mg 1 tab PO Q8H PRN pain #20 tabs 01/19/25 tablet ondansetron 4 mg disintegrating 4 mg PO Q6H PRN nausea and 02/04/25 tablet vomiting #10 tabs prochlorperazine maleate 5 mg 5 mg PO TID PRN nausea and 02/04/25 tablet (Compazine) vomiting #14 tabs Allergies Allergy/AdvReac Type Severity Reaction Status Date / Time No Known Allergies Allergy Verified 02/04/25 10:29 Review of Systems Review of Systems Systems Reviewed: All systems reviewed, normal except as documented Past Medical History Past Medical History ENDOCRINE: Positive Endocrine Disorders HEMATOLOGIC: Positive Blood Disorders and Anemia OTHER HISTORY: Positive Hospitalization (CHILDBIRTH.) and Blood Transfusions (TODAY.) Social History SMOKING STATUS: Never smoker SECOND HAND EXPOSURE: No ED Exam Narrative Physical exam: Constitutional: Awake, alert, nontoxic, no acute distress HEENT: NC, AT, EOMI Neck: Supple, there is a surgical wound to the left lateral anterior aspect of the neck near the base that is approximately 2 cm, no surrounding erythema, no discharge, no induration, no crepitus CV: RRR, no m/r/g Lungs: CTAB, no w/r/r, no respiratory distress. Abd: Soft, mildly tender to her upper abdomen, no rebound, no guarding, no HSM noted to palpation Extremities: No deformities, no edema noted Neuro: AAOx3, CN 2-12 GIBL, no acute neuro deficit noted. Skin: Warm, dry, intact Course Course Course Narrative: 1510h: Patient's labs generally unremarkable. Vitally stable. No active vomiting at this time. Will give dose of Compazine here for nausea. Will advise on symptomatic treatment for home. To return if worse. Stable for discharge. Quality Measures none Orders Category Date Time Status Bedside COVID-19 Antigen Test NOW Care 02/04/25 10:53 Active Bedside Influenza A&B Antigen Test NOW Care 02/04/25 10:53 Active EKG (ED ONLY) *Do not use* NOW Care 02/04/25 10:52 Completed EKG (ED Only) Stat Exams 02/04/25 10:52 Draft XR chest 2V Stat Exams 02/04/25 10:52 Completed B-Type Natriuretic Peptide Stat Lab 02/04/25 12:03 Completed Blood Culture (Lab) Stat Lab 02/04/25 12:07 Received CBC Stat Lab 02/04/25 12:03 Completed CMP [Comprehensive Metabolic Panel] Stat Lab 02/04/25 12:03 Completed Lactate (Lactic Acid) Stat Lab 02/04/25 12:03 Completed Partial Thromboplastin Time Stat Lab 02/04/25 12:03 Completed Procalcitonin Stat Lab 02/04/25 12:03 Completed Prothrombin Time with INR Stat Lab 02/04/25 12:03 Completed Troponin I Stat Lab 02/04/25 12:03 Completed Urinalysis Stat Lab 02/04/25 12:12 Completed Prochlorperazine Inj [Compazine Inj] Med 02/04/25 15:05 Discontinued 10 mg IM X1 ONE Vital Signs Vital signs: Vital Signs Temperature 99.5 F 02/04/25 10:45 Pulse Rate 89 02/04/25 10:45 Respiratory Rate 17 02/04/25 10:45 Blood Pressure 135/87 H 02/04/25 10:45 Pulse Oximetry (%) 97 02/04/25 10:45 Oxygen Delivery Method Room Air 02/04/25 10:45 Pulse ox is 97% on room air which is adequate. Syncope MDM Narrative MDM Narrative:: Emma Shipman am scribing for and in the presence of Dr. Perdomo. Patient data External records reviewed:: [facility] previous records (I reviewed ED visit on 01/19/2025 ) Clinical information provided by:: patient Social determinants that could affect healthcare access:: none Patient has the following chronic illnesses:: Recently diagnosed with tuberculosis and undergoing treatment. Diabetes How is presenting disease/condition affected by chronic disease/condition?: uneffected by Evaluation data The following diagnostics were reviewed and interpreted by me:: lab results, radiology exam(s) and EKG tracing(s) (02/04/2025 @ 10:56. Sinus rhythm, rate 83, no STEMI. ) Lab and/or radiology exams considered but not ordered:: None Interpretation Summary: Ordering Physician: Ki Patino Date of Service: 02/04/25 Procedure(s): XR chest 2V Accession Number(s): [id number] cc: Ki Patino; Tevin Pimentel MD; Darryn Pedraza PA-C~ Examination: AP lateral chest 2 views TECHNIQUE:: Sitting AP lateral chest 2 views Date and time: February 04, 2025 1119 hours INDICATIONS: Chest pain today FINDINGS: Normal heart size. Lungs are clear. The osseous structures are intact IMPRESSION: No active disease Dictated By: Tevin Pimentel MD Signed By: <Electronically signed by Tevin Pimentel MD in [place]> 02/04/25 1145 Medications / Prescriptions Medications or Prescriptions considered but not ordered:: None Medication administrations:: Medication Administration History Discontinued Medications Prochlorperazine Edisylate (Prochlorperazine Inj 5 Mg/Ml Vial 2 Ml) 10 mg IM X1 ONE; Protocol Stop: 02/04/25 15:06 See above Consultations Consultation(s) initiated? (list below): No Diagnosis Syncope Differential Diagnosis: syncope due to orthostatic hypotension, vasovagal syncope and dehydration Most likely diagnosis given after review of the tests above:: Vomiting Vasovagal syncope Admission Indicated Admission indicated?: not indicated Admission Request Was there a request for admission?: No Disposition Plan Disposition Plan: Discharge Discharge Attestation Discharge Attestation: The patient and all family members were given an opportunity to ask questions and understood the discharge instructions. Discharge instructions specifically effects, indications for sooner follow up or return to the emergency department, and the expected course of current diagnosis. Patient condition: Stable Discharge Plan Plan Patient Disposition: HOME (Self Care) Patient condition on transfer: Stable Prescriptions/Referrals Prescriptions/Med Rec: New ondansetron 4 mg tablet,disintegrating 4 mg PO Q6H PRN (Reason: nausea and vomiting) Qty: 10 0RF prochlorperazine maleate [Compazine] 5 mg tablet 5 mg PO TID PRN (Reason: nausea and vomiting) Qty: 14 0RF No Action ondansetron 4 mg tablet,disintegrating 4 mg PO Q8H PRN (Reason: Nausea And Vomiting) labetalol 200 mg tablet 200 mg PO BID 30 Days Qty: 60 2RF (DME) blood-glucose meter Kit See Rx Instructions .Route Qty: 1 0RF Rx Instructions: As directed, four times a day (fasting, 1hr after BF, 1hr after lunch, 1hr after dinner) (DME) lancets Misc See Rx Instructions .Route Qty: 200 0RF Rx Instructions: As directed (DME) Blood Glucose Test Strip See Rx Instructions .Route Qty: 100 0RF Rx Instructions: As directed Vitamin 27 mg iron- 800 mcg Tablet 1 tab PO QDAY acetaminophen-codeine 300-30 mg tablet 2 tab PO Q8H MDD 6 PRN (Reason: pain) Qty: 20 0RF acetaminophen-codeine 300-30 mg tablet 1 tab PO Q8H PRN (Reason: pain) Qty: 20 0RF Referrals: Darryn Pedraza PA-C [Primary Care Provider] - In 1 week Problem List Clinical Impression: Vomiting, Vasovagal syncope Patient/Caregiver Discharge Instructions Diet Instructions: Ensure that you are eating a bland diet - avoid any spicy food, citrus, tomato. May try oatmeal, toast, peanut butter, applesauce, elin ana. Education Materials: ED Diet for Vomiting or ..., ED Dizziness or Syncope ... Print Language: Georgian Stand Alone Forms: Estelita Award Info., Patient Portal Info Letter
[2025-02-04 15:44] VITALS: BP 138/84; PULSE 82; RESP 15; TEMP 36.8; O2SAT 98
[2025-02-04] MEDS: PROCHLORPERAZINE INJ 5 MG/ML VIAL 2 ML 10 MG IM (15:47)
== END 2025-02-04 15:50 | disposition home or self-care (01) ==
PROVIDERS: Nurse Practitioner Family; Emergency Provider Family Medicine; PCP Physician Assistant
DX: R55 Syncope and collapse (principal); R11.2 Nausea with vomiting, unspecified; E11.9 Type 2 diabetes mellitus without complications
CPT/HCPCS: 36415; 71046; 80053; 81001; 83605; 83880; 84145; 84484; 85025; 85610; 85730; 87040; 93005; 96372; 99284; J0780

== ENCOUNTER 2025-02-18 07:39 | Emergency (ER) | payer MEDICAID, SELFPAY ==
--- NOTE | 2025-02-18 08:01 | PD.EDFEVER ---
ED Fever RME/HPI General Chief Complaint: Fever Stated Complaint: FEVER & HEADACHE X 3 DAYS Time Seen by Provider: 02/18/25 07:56 Arrival date/time: 02/18/25 07:39 Limitations: no limitations RME / HPI RME / HPI Narrative: 44 year old female with no stated medical history presents to the ED for evaluation of frontal headache beginning 3 days ago. Accompanied by fevers, chills, body aches, nausea, and vomiting. Reports she has taken Tylenol and Ibuprofen at home with no improvement; last took Ibuprofen at 06:00 AM today with no improvement. Patient reports sick contacts at home, children with fevers and sore throat. Denies chest pain, cough, shortness of breath, abdominal pain, diarrhea, or urinary symptoms. Related Data Home Medications ?Medication ?Instructions ?Recorded ?Confirmed vits no.124-ferrous fum 1 tab PO QDAY 10/21/23 11/17/23 27 mg iron-folic acid 800 mcg tablet ( Vitamin) ondansetron 4 mg disintegrating 4 mg PO Q8H PRN Nausea And Vomiting 11/17/23 11/17/23 tablet Previous Rx's ?Medication ?Instructions ?Recorded blood sugar diagnostic (Blood #100 ea 11/19/23 Glucose Test strips) blood-glucose meter #1 ea 11/19/23 labetalol 200 mg tablet 200 mg PO BID 30 days #60 tabs 11/19/23 lancets #200 ea 11/19/23 acetaminophen 300 mg-codeine 30 mg 2 tab PO Q8H PRN pain #20 tabs 12/30/24 tablet acetaminophen 300 mg-codeine 30 mg 1 tab PO Q8H PRN pain #20 tabs 01/19/25 tablet ondansetron 4 mg disintegrating 4 mg PO Q6H PRN nausea and 02/04/25 tablet vomiting #10 tabs prochlorperazine maleate 5 mg 5 mg PO TID PRN nausea and 02/04/25 tablet (Compazine) vomiting #14 tabs cefuroxime axetil 500 mg tablet 500 mg PO BID #14 tabs 03/01/25 famotidine 20 mg tablet (Pepcid) 20 mg PO BID #14 tabs 03/01/25 metoclopramide HCl 10 mg tablet 10 mg PO Q6H PRN nausea and 03/01/25 (Reglan) vomiting #20 tabs pyridoxine (vitamin B6) 50 mg 50 mg PO QDAY vitamin use #90 tabs 03/14/25 tablet Allergies Allergy/AdvReac Type Severity Reaction Status Date / Time No Known Allergies Allergy Verified 03/01/25 18:18 Review of Systems Review of Systems Systems Reviewed: All systems reviewed, normal except as documented Past Medical History Past Medical History ENDOCRINE: Positive Endocrine Disorders HEMATOLOGIC: Positive Blood Disorders and Anemia OTHER HISTORY: Positive Hospitalization (CHILDBIRTH.) and Blood Transfusions (TODAY.) Family History FAMILY HISTORY: Negative Family Psychiatric Problems, Family Respiratory Disorders, Family Cardiac Disorders, Family Gastrointestinal Problems, Family Cancer, Family Surgery or Family Anesthesia Reaction Social History SMOKING STATUS: Never smoker SECOND HAND EXPOSURE: No Physical Exam General Limitations: no limitations General appearance: alert and in no apparent distress Head Head exam: atraumatic, normocephalic and normal inspection Eye Eye exam: Present normal appearance, PERRL and EOMI ENT ENT exam: Present normal exam, normal oropharynx and mucous membranes moist Neck Neck exam: Present normal inspection, full ROM and trachea midline Chest Chest inspection: Present normal inspection and symmetric chest wall rise Respiratory Respiratory exam: Present normal lung sounds bilaterally Cardiovascular Cardiovascular exam: Present regular rate, normal rhythm and normal heart sounds Abdominal Exam Abdominal exam: Present soft; Absent distention, tenderness, guarding, rebound or rigidity Extremities Exam Extremities exam: Present normal inspection and full ROM Back Exam Back exam: Present normal inspection and full ROM Neurological Exam Neurological exam: Present alert, oriented X3, CN II-XII intact and normal gait; Absent motor sensory deficit Psychiatric Psychiatric exam: Present normal affect and normal mood Skin Skin exam: Present warm, dry, intact and normal color ED Exam General Limitations: Present no limitations General appearance: Present alert and in no apparent distress Head Head exam: Present atraumatic, normocephalic and normal inspection Eye Eye exam: Present normal appearance, PERRL and EOMI ENT ENT exam: Present normal exam, normal oropharynx and mucous membranes moist Neck Neck exam: Present normal inspection, full ROM and trachea midline Chest Chest inspection: Present normal inspection and symmetric chest wall rise Respiratory Respiratory exam: Present normal lung sounds bilaterally Cardiovascular Cardiovascular exam: Present regular rate, normal rhythm and normal heart sounds Abdominal Exam Abdominal exam: Present soft; Absent distention, tenderness, guarding, rebound or rigidity Extremities Exam Extremities exam: Present normal inspection and full ROM Back Exam Back exam: Present normal inspection and full ROM Neurological Exam Neurological exam: Present alert, oriented X3, CN II-XII intact and normal gait; Absent motor sensory deficit Psychiatric Psychiatric exam: Present normal affect and normal mood Skin Skin exam: Present warm, dry, intact and normal color Course Quality Measures none Orders Category Date Time Status Bedside COVID-19 Antigen Test NOW Care 02/18/25 08:32 Completed Bedside Influenza A&B Antigen Test NOW Care 02/18/25 08:[address] head/brain wo con Stat Exams 02/18/25 08:32 Completed CXR2 [XR chest 2V] Stat Exams 02/18/25 08:32 Completed Acetaminophen Tab [Tylenol Tab] Med 02/18/25 08:33 Discontinued 650 mg PO X1 ONE Metoclopramide [Reglan] Med 02/18/25 08:33 Discontinued 5 mg PO X1 ONE Oseltamivir [Tamiflu] Med 02/18/25 09:56 Discontinued 75 mg PO X1 ONE Vital Signs Vital signs: Vital Signs Temperature 99.5 F 02/18/25 08:04 Pulse Rate 93 02/18/25 08:04 Respiratory Rate 18 02/18/25 08:04 Blood Pressure 142/88 H 02/18/25 08:04 Pulse Oximetry (%) 98 02/18/25 08:04 Oxygen Delivery Method Room Air 02/18/25 08:04 Fever MDM Narrative MDM Narrative:: Emma Shipman am scribing for and in the presence of Dr. Nunes. Patient influenza A positive, multiple sick contacts at home. Head CT anc CXR unremarkeable. Patient not septic appearing non toxic. No nuchal rigidity, no rashes, no difficulty breathing, abd soft non dist non tender. Abd soft, non tender. Offered home meds for symptom relief. Patient left before could re-evaluate patient. Patient left with her three children. Did not want to wait for re-evaluation. Patient data External records reviewed:: [facility] previous records (I reviewed ED visit n 01/19/2025 ) Clinical information provided by:: patient Social determinants that could affect healthcare access:: none Patient has the following chronic illnesses:: None How is presenting disease/condition affected by chronic disease/condition?: no chronic disease Evaluation data The following diagnostics were reviewed and interpreted by me:: lab results and radiology exam(s) Lab and/or radiology exams considered but not ordered:: None Interpretation Summary: Ordering Physician: Frances Nunes MD Date of Service: 02/18/25 Procedure(s): XR chest 2V Accession Number(s): [id number] cc: Tevin Pimentel MD; Frances Nunes MD~ Examination: PA lateral chest 2 views. TECHNIQUE: Upright PA and lateral chest 2 views. Date and time: February 18, 2025, 0858 hours, comparison February 04, 2025 INDICATIONS: Coughing and fever 3 days. FINDINGS: Normal heart size. Lungs are clear. Osseous structures are intact. IMPRESSION: No active disease. Dictated By: Tevin Pimentel MD Signed By: <Electronically signed by Tevin Pimentel MD in [place]> 02/18/25924 Ordering Physician: Frances Nunes MD Date of Service: 02/18/25 Procedure(s): CT head/brain wo con Accession Number(s): [id number] cc: Adam Sherman MD; Tevin Pimentel MD; Frances Nunes MD~ Examination: CT brain head without contrast. 2-D sagittal coronal reconstructions Date and time of exam:February 18, 2025, 0953 hours INDICATIONS: Generalized head pain with dizziness beginning 3 days ago CTDI: vol (mGy):45.9 DLP: (mGycm):821. Technique: Multiple CT axial sections of the brain have been obtained, 5 mm slice thickness. Contrast has not been administered. 2-D sagittal, coronal reconstructions have been obtained Low dose protocols were performed. One or more of the following dose reduction techniques were used; automated exposure control, adjustment of the mA and/or KV according to patient size, use of iterative reconstruction technique. Findings: No significant ventricular enlargement. Intra-axial or extra-axial hemorrhage density is not seen. No mass effect or midline shift Basal cisterns are not remarkable. Fourth ventricle is midline. Cranial vault intact. Impression: Negative for acute hemorrhage, mass effect or midline shift Advise clinical correlation and follow up accordingly. Dictated By: Tevin Pimentel MD Signed By: <Electronically signed by Tevin Pimentel MD in [place]> 02/18/25 1013 Medications / Prescriptions Medications or Prescriptions considered but not ordered:: None Medication administrations:: Medication Administration History Discontinued Medications Acetaminophen (Acetaminophen 325 Mg Tablet) 650 mg PO X1 ONE Stop: 02/18/25 08:34 Last Admin: 02/18/25 09:43 Dose: 650 mg Documented By: KATHRINE Metoclopramide HCl (Metoclopramide 5 Mg Tablet) 5 mg PO X1 ONE Stop: 02/18/25 08:34 Last Admin: 02/18/25 09:44 Dose: 5 mg Documented By: KATHRINE Oseltamivir Phosphate (Oseltamivir 75 Mg Capsule) 75 mg PO X1 ONE Stop: 02/18/25 09:57 Last Admin: 02/18/25 11:05 Dose: 75 mg Documented By: KATHRINE See above Consultations Consultation(s) initiated? (list below): No Diagnosis Fever Differential Diagnosis: fever of unknown origin, community acquired pneumonia, viral infection and influenza Most likely diagnosis given after review of the tests above:: Influenza Admission Indicated Admission indicated?: not indicated Admission Request Was there a request for admission?: No Disposition Plan Disposition Plan: Discharge Discharge Attestation Discharge Attestation: The patient and all family members were given an opportunity to ask questions and understood the discharge instructions. Discharge instructions specifically effects, indications for sooner follow up or return to the emergency department, and the expected course of current diagnosis. Patient condition: Stable Discharge Plan Plan Patient Disposition: HOME (Self Care) Prescriptions/Referrals Prescriptions/Med Rec: No Action ondansetron 4 mg tablet,disintegrating 4 mg PO Q8H PRN (Reason: Nausea And Vomiting) labetalol 200 mg tablet 200 mg PO BID 30 Days Qty: 60 2RF (DME) blood-glucose meter Kit See Rx Instructions .Route Qty: 1 0RF Rx Instructions: As directed, four times a day (fasting, 1hr after BF, 1hr after lunch, 1hr after dinner) (DME) lancets Misc See Rx Instructions .Route Qty: 200 0RF Rx Instructions: As directed (DME) Blood Glucose Test Strip See Rx Instructions .Route Qty: 100 0RF Rx Instructions: As directed Vitamin 27 mg iron- 800 mcg Tablet 1 tab PO QDAY acetaminophen-codeine 300-30 mg tablet 2 tab PO Q8H MDD 6 PRN (Reason: pain) Qty: 20 0RF acetaminophen-codeine 300-30 mg tablet 1 tab PO Q8H PRN (Reason: pain) Qty: 20 0RF ondansetron 4 mg tablet,disintegrating 4 mg PO Q6H PRN (Reason: nausea and vomiting) Qty: 10 0RF prochlorperazine maleate [Compazine] 5 mg tablet 5 mg PO TID PRN (Reason: nausea and vomiting) Qty: 14 0RF metoclopramide HCl [Reglan] 10 mg tablet 10 mg PO Q6H PRN (Reason: nausea and vomiting) Qty: 20 0RF famotidine [Pepcid] 20 mg tablet 20 mg PO BID Qty: 14 0RF cefuroxime axetil 500 mg tablet 500 mg PO BID Qty: 14 0RF pyridoxine (vitamin B6) 50 mg tablet 50 mg PO QDAY MDD 1 Qty: 90 0RF Referrals: Adam Sherman MD [Primary Care Provider] - In 1 week Problem List Clinical Impression: Influenza Patient/Caregiver Discharge Instructions Education Materials: ED Influenza (Adult) Additional Instructions: Please follow-up with your primary care doctor in 1 to 2 days return immediately if symptoms worsen or new symptoms of concern Print Language: Azeri Stand Alone Forms: [employer] Award Info., Patient Portal Info Letter
[2025-02-18 08:04] VITALS: BP 142/88; PULSE 93; RESP 18; TEMP 37.5; O2SAT 98; BMI 31.1
--- NOTE | 2025-02-18 08:32 | XR_ITS ---
Examination: CT brain head without contrast. 2-D sagittal coronal reconstructions Date and time of exam:February 18, 2025, 0953 hours INDICATIONS: Generalized head pain with dizziness beginning 3 days ago CTDI: vol (mGy):45.9 DLP: (mGycm):821. Technique: Multiple CT axial sections of the brain have been obtained, 5 mm slice thickness. Contrast has not been administered. 2-D sagittal, coronal reconstructions have been obtained Low dose protocols were performed. One or more of the following dose reduction techniques were used; automated exposure control, adjustment of the mA and/or KV according to patient size, use of iterative reconstruction technique. Findings: No significant ventricular enlargement. Intra-axial or extra-axial hemorrhage density is not seen. No mass effect or midline shift Basal cisterns are not remarkable. Fourth ventricle is midline. Cranial vault intact. Impression: Negative for acute hemorrhage, mass effect or midline shift Advise clinical correlation and follow up accordingly.
--- NOTE | 2025-02-18 08:32 | XR_ITS ---
Examination: PA lateral chest 2 views. TECHNIQUE: Upright PA and lateral chest 2 views. Date and time: February 18, 2025, 0858 hours, comparison February 04, 2025 INDICATIONS: Coughing and fever 3 days. FINDINGS: Normal heart size. Lungs are clear. Osseous structures are intact. IMPRESSION: No active disease.
[2025-02-18] MEDS: ACETAMINOPHEN 325 MG TABLET 650 MG PO (09:43)
[2025-02-18] MEDS: METOCLOPRAMIDE 5 MG TABLET PO (09:44)
[2025-02-18] MEDS: OSELTAMIVIR 75 MG CAPSULE PO (11:05)
== END 2025-02-18 12:00 | disposition home or self-care (01) ==
PROVIDERS: Emergency Provider Emergency Medicine; PCP Family Medicine
DX: J11.1 Influenza due to unidentified influenza virus with other respiratory manifestations (principal)
CPT/HCPCS: 70450; 71046; 87400; 87651; 87811; 99284; A9270

== ENCOUNTER 2025-02-28 15:21 | Emergency (ER) | payer MEDICAID, SELFPAY ==
[2025-02-28 15:25] VITALS: BMI 25.7
[2025-02-28 15:41] VITALS: BP 135/85; PULSE 78; RESP 18; TEMP 37.2; O2SAT 97
--- NOTE | 2025-02-28 16:50 | PD.EDRME ---
Rapid Medical Screening Exam RME Arrival date/time: 02/28/25 15:21 44-year-old female presents to the emergency department today stating that she had a procedure done a couple of months ago and believes she was instructed to come back to the ER for further evaluation for a procedure to be completed today. I asked the patient what procedure she is supposed to have done and she does not know Patient reports no chest pain no shortness of breath no headache dizziness weakness at this time patient GCS of 15 This is RME only patient be seen in the main ER for further evaluation Chief Complaint: General Adult/Misc Complain Time Seen by Provider: 02/28/25 16:50 Vital signs: Vital Signs Temperature 98.9 F 02/28/25 15:41 Pulse Rate 78 02/28/25 15:41 Respiratory Rate 18 02/28/25 15:41 Blood Pressure 135/85 H 02/28/25 15:41 Pulse Oximetry (%) 97 02/28/25 15:41 Oxygen Delivery Method Room Air 02/28/25 15:41
--- NOTE | 2025-02-28 18:23 | PD.EDADDENDU ---
Emergency Room Addendum Addendum Narrative: When I looked for the patient to start my evaluation, I was told the patient eloped. Coleman Sparks MD
--- NOTE | 2025-02-28 18:29 | PD.EDADDENDU ---
Emergency Room Addendum Addendum Narrative: When I looked for the patient to start my evaluation, I was told the patient eloped. Coleman Sparks MD
== END 2025-02-28 18:40 | disposition left against medical advice (07) ==
PROVIDERS: Emergency Provider Emergency Medicine
DX: Z53.21 Procedure and treatment not carried out due to patient leaving prior to being seen by health care provider (principal)
CPT/HCPCS: 99281

== ENCOUNTER → 2025-02-28 | Outpatient (CLI) | payer MEDICAID, SELFPAY ==
[2025-02-28 17:50] LABS: HCG Qualitative,Urine Negative
== END | disposition home or self-care (01) ==
LOC: SLDO 03-07 08:21
PROVIDERS: Referring Provider Family Medicine; Visit Provider Family Medicine
DX: Z32.00 Encounter for pregnancy test, result unknown (principal)
CPT/HCPCS: 81025

== ENCOUNTER 2025-03-01 18:16 | Emergency (ER) | payer MEDICAID, SELFPAY ==
[2025-03-01 18:38] VITALS: BP 153/86; PULSE 80; RESP 18; TEMP 37.1; O2SAT 98
--- NOTE | 2025-03-01 18:58 | PD.EDRME ---
Rapid Medical Screening Exam RME Arrival date/time: 03/01/25 18:16 44F with history of neck biopsy 2 months ago (supposedly caused by TB because she's on TB meds) and DM presents to ED 1 day (likely around 12-1 PM today) of dizziness, N/V, cold sweats, and fatigue. Patient denies diarrhea. Daughter thinks it started after she ate something. Chief Complaint: Dizziness Vital signs: Vital Signs Temperature 98.7 F 03/01/25 18:38 Pulse Rate 80 03/01/25 18:38 Respiratory Rate 18 03/01/25 18:38 Blood Pressure 153/86 H 03/01/25 18:38 Pulse Oximetry (%) 98 03/01/25 18:38 Oxygen Delivery Method Oxy Mask 03/01/25 18:38
--- NOTE | 2025-03-01 19:00 | EKG_ITS ---
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
--- NOTE | 2025-03-01 19:00 | XR_ITS ---
Examination: CT brain head without contrast. 2-D sagittal coronal reconstructions Date and time of exam:March 01, 2025, 2009 hrs. Indications: Headache nausea weakness today CTDI: vol (mGy):46.9 DLP: (mGycm):800 Technique: Multiple CT axial sections of the brain have been obtained, 5 mm slice thickness. Contrast has not been administered. 2-D sagittal, coronal reconstructions have been obtained Low dose protocols were performed. One or more of the following dose reduction techniques were used; automated exposure control, adjustment of the mA and/or KV according to patient size, use of iterative reconstruction technique. Findings: No significant ventricular enlargement. Intra-axial or extra-axial hemorrhage density is not seen. No mass effect or midline shift Basal cisterns are not remarkable. Fourth ventricle is midline. Cranial vault intact. Impression: Negative for acute hemorrhage, mass effect or midline shift Advise clinical correlation and follow-up accordingly
--- NOTE | 2025-03-01 19:00 | XR_ITS ---
Examination: AP chest single view Technique: AP upright chest single view portable Date and time: March 01, 2025 1912 hrs., Comparison February 18, 2025 Indications: Vomiting dizziness beginning today. Findings: Normal heart size. Lungs are clear. The osseous structures are intact. Impression: No active disease.
[2025-03-01 19:53] LABS: Collection Type, Urine Clean Catch
[2025-03-01 19:57] LABS: HCG Qualitative,Urine Negative
[2025-03-01 20:01] LABS: Bilirubin,Urine Negative (Negative); Blood,Urine 1+ (Negative); Clarity,Urine Clear (Clear/Hazy); Color,Urine Lt-Yellow (Lt Yel-Yel); Glucose, Urine Negative (Negative); Ketones,Urine Negative (Negative); Leukocyte Esterase,Urine Positive (Negative); Nitrite,Urine Negative (Negative); PH,Urine 6.0 (5.0-7.0); Protein,Urine Negative (Neg - Trace); RBC,Urine 14 /hpf (0-3); Specific Gravity,Urine 1.023 (1.001-1.035); Squamous Epithelial Cell,Urine 6 /hpf (0-5); Urobilinogen,Urine Negative mg/dL (0.0-1.0); WBC,Urine 16 /hpf (0-5)
[2025-03-01 20:11] LABS: Basophils # (Auto) 0.0 Thou/mm3 (0.0-0.2); Basophils % (Auto) 0 % (0-2.5); Eosinophils # (Auto) 0.2 Thou/mm3 (0.0-0.5); Eosinophils % (Auto) 2 % (0-10); Hematocrit 32.3 % (36.0-46.0); Hemoglobin 10.4 g/dL (12.0-16.0); Immature Granulocytes Auto 0.05 Thou/mm3 (0.00-0.00); Lymphocytes # (Auto) 1.2 Thou/mm3 (1.0-4.8); Lymphocytes % (Auto) 11 % (10-50); Mean Corpuscular HGB Conc 32.2 g/dl (31.0-37.0); Mean Corpuscular Hemoglobin 23.8 pg (25.0-35.0); Mean Corpuscular Volume 74 fL (80-100); Monocytes # (Auto) 0.6 Thou/mm3 (0.0-0.8); Monocytes % (Auto) 6 % (0-12); Neutrophils # (Auto) 8.3 Thou/mm3 (1.8-7.7); Neutrophils % (Auto) 81 % (37-80); Nucleated Red Blood Cell # 0.00 Thou/mm3 (0.00-0.00); Nucleated Red Blood Cell % 0 /100 WBC (0); Platelet Count 388 Thou/mm3 (140-440); RDW Standard Deviation 42.5 fL (36.4-46.3); Red Blood Count 4.37 Miln/mm3 (4.00-5.20); White Blood Count 10.3 Thou/mm3 (3.6-11.0)
[2025-03-01 20:11] LABS: Culture Indicated,Urine Yes
[2025-03-01 20:24] LABS: Alanine Aminotransferase 34 U/L (10-49); Albumin, Serum 4.7 gm/dL (3.5-5.0); Albumin/Globulin Ratio 1.4 (1.2-2.2); Alkaline Phosphatase 102 U/L (46-116); Anion Gap 12 (7-16); Aspartate Amino Transferase 38 U/L (0-34); BUN/Creatinine Ratio 13 Ratio (12-20); Bilirubin,Total 0.2 mg/dL (0.3-1.2); Blood Urea Nitrogen 10 mg/dL (9-23); Calcium 9.5 mg/dL (8.3-10.6); Calcium (Corrected) 9.5 mg/dL (8.5-10.1); Carbon Dioxide 25.3 mMol/L (20.0-31.0); Chloride 102 mMol/L (98-107); Creatinine (Component) 0.8 mg/dL (0.6-1.3); Globulin 3.4 gm/dL (2.3-3.5); Glucose 123 mg/dL (74-106); Magnesium 2.2 mg/dL (1.6-2.6); Osmolality,Calculated 277 (275-295); Potassium 4.0 mMol/L (3.4-5.1); Sodium 139 mMol/L (136-145); Total Protein 8.1 gm/dL (5.7-8.2); Troponin I < 0.020 ng/mL (0.0-0.045); eGFR > 60 See Note
[2025-03-01 21:29] VITALS: BP 159/86; PULSE 81; RESP 16; TEMP 37.3; O2SAT 97
--- NOTE | 2025-03-01 22:15 | PD.EDDIZZY ---
ED Dizzyness RME/HPI General Chief Complaint: Dizziness Stated Complaint: DIZZINESS, WEANESS, FATIGUE X 3 HOURS Time Seen by Provider: 03/01/25 21:54 Arrival date/time: 03/01/25 18:16 RME / HPI RME / HPI Narrative: 44F with history of neck biopsy 2 months ago (supposedly caused by TB because she's on TB meds) and DM presents to ED 1 day (likely around 12-1 PM today) of dizziness, N/V, cold sweats, and fatigue. Patient denies diarrhea. Daughter thinks it started after she ate something.Patient denies any Abdominal pain. Denies any diarrhea denies any constipation denies any fever denies any other complaints no medication was taken prior to arrival. Related Data Home Medications ?Medication ?Instructions ?Recorded ?Confirmed vits no.[id number]-ferrous fum 1 tab PO QDAY 10/21/23 11/17/23 27 mg iron-folic acid 800 mcg tablet ( Vitamin) ondansetron 4 mg disintegrating 4 mg PO Q8H PRN Nausea And Vomiting 11/17/23 11/17/23 tablet Previous Rx's ?Medication ?Instructions ?Recorded blood sugar diagnostic (Blood #100 ea 11/19/23 Glucose Test strips) blood-glucose meter #1 ea 11/19/23 labetalol 200 mg tablet 200 mg PO BID 30 days #60 tabs 11/19/23 lancets #200 ea 11/19/23 acetaminophen 300 mg-codeine 30 mg 2 tab PO Q8H PRN pain #20 tabs 12/30/24 tablet acetaminophen 300 mg-codeine 30 mg 1 tab PO Q8H PRN pain #20 tabs 01/19/25 tablet ondansetron 4 mg disintegrating 4 mg PO Q6H PRN nausea and 02/04/25 tablet vomiting #10 tabs prochlorperazine maleate 5 mg 5 mg PO TID PRN nausea and 02/04/25 tablet (Compazine) vomiting #14 tabs cefuroxime axetil 500 mg tablet 500 mg PO BID #14 tabs 03/01/25 famotidine 20 mg tablet (Pepcid) 20 mg PO BID #14 tabs 03/01/25 metoclopramide HCl 10 mg tablet 10 mg PO Q6H PRN nausea and 03/01/25 (Reglan) vomiting #20 tabs Allergies Allergy/AdvReac Type Severity Reaction Status Date / Time No Known Allergies Allergy Verified 03/01/25 18:18 Review of Systems Review of Systems Narrative Review of Systems: Review of system reviewed and within normal limits except mentioned in HPI ED Exam Narrative Physical exam: VITAL SIGNS: Reviewed. GENERAL APPEARANCE: Alert and interactive, follows commands, no acute distress, HEAD AND FACE: Non-traumatic. ENT: PERRL, pink conjunctivitis, eyelid no trauma, Mucous membrane moist. NECK: Supple, nontender, no nuchal rigidity. CHEST: No tenderness, no crepitus, no paradoxical movement, no retractions. LUNGS: Clear, well ventilated, symmetric, no rales, no wheezing, no ronchi, no stridor, good breath sounds bilaterally. HEART: Regular rate, regular rhythm, no murmur, no gallops. ABDOMEN: Soft, positive bowel sounds, nondistended, no guarding, nontender, no rebound, no masses, RECTAL: Deferred. GENITAL: Deferred. NEUROLOGICAL: Gross motor function intact sensory function intact, Appropriate for age. MUSCULOSKELETAL: low back nontender, full range of motion. EXTREMITIES: Nontender, full range of motion. SKIN: Color pink, dry, no rash, no lacerations, no abrasions, no contusions. LYMPHATICS: Deferred. Course Quality Measures none Orders Category Date Time Status EKG (ED ONLY) *Do not use* NOW Care 03/01/25 19:[address] head/brain wo con Stat Exams 03/01/25 19:00 Completed EKG (ED Only) Stat Exams 03/01/25 19:00 Draft XR chest 1V portable Stat Exams 03/01/25 19:00 Completed CBC Stat Lab 03/01/25 19:53 Completed Comprehensive Metabolic Panel Stat Lab 03/01/25 19:53 Completed HCG Qualitative,Urine Stat Lab 03/01/25 19:47 Completed Magnesium Stat Lab 03/01/25 19:53 Completed Troponin I Stat Lab 03/01/25 19:53 Completed Urinalysis, C/S if Indicated Stat Lab 03/01/25 19:47 Completed Urine Culture Stat Lab 03/01/25 19:47 Received Famotidine Inj [Pepcid Inj] Med 03/01/25 22:13 Discontinued 20 mg IVP X1 ONE Metoclopramide Inj [Reglan Inj] Med 03/01/25 22:13 Discontinued 10 mg IVP X1 ONE Ringers Lactated 1000 ml [Lactated Ringers] 1,000 ml Med 03/01/25 22:14 Discontinued IV 999 mls/hr cefTRIAXone/D5w 1gm IV premix [Rocephin/D5w 1gm IV Med 03/01/25 22:14 Discontinued premix] 1 gm in 50 ml IV X1 Vital Signs Vital signs: Vital Signs Temperature 98.7 F 03/01/25 18:38 Pulse Rate 80 03/01/25 18:38 Respiratory Rate 18 03/01/25 18:38 Blood Pressure 153/86 H 03/01/25 18:38 Pulse Oximetry (%) 98 03/01/25 18:38 Oxygen Delivery Method Oxy Mask 03/01/25 18:38 Dizziness MDM Narrative MDM Narrative:: 44F with history of neck biopsy 2 months ago (supposedly caused by TB because she's on TB meds) and DM presents to ED 1 day (likely around 12-1 PM today) of dizziness, N/V, cold sweats, and fatigue. Patient denies diarrhea. Daughter thinks it started after she ate something.Patient denies any Abdominal pain. Denies any diarrhea denies any constipation denies any fever denies any other complaints no medication was taken prior to arrival. Laboratory Significant for UTI, chest x-ray came back unremarkable. The rest of the labs unremarkable. CT scan of the head came back normal. EKG showed sinus rhythm, ventricular rate of 76 bpm, no ST segment elevation or depression noted. Patient received IV fluids, Reglan, Pepcid, ceftriaxone IV. No recurrence of vomiting noted in the ED. Patient verbalized significant improvement of symptoms Patient appears nontoxic and hemodynamically stable .Decision to discharge the patient. The patient/family was given an opportunity to ask questions and understood their discharge instructions. Discharge instructions specifically included follow up provider and time frame, current and/or new medications and possible side effects, indications for sooner follow up or return to the emergency department, and the expected course of current diagnosis. Patient reports feeling better as well and giving evidence of significant clinical improvement, I believe patient is now a candidate for discharge. Patient data External records reviewed:: None Clinical information provided by:: patient Social determinants that could affect healthcare access:: none Patient has the following chronic illnesses:: History of TB currently on TB meds How is presenting disease/condition affected by chronic disease/condition?: uneffected by Evaluation data The following diagnostics were reviewed and interpreted by me:: lab results, radiology exam(s) and EKG tracing(s) Lab and/or radiology exams considered but not ordered:: None Interpretation Summary: See results MDM Medications / Prescriptions Medications or Prescriptions considered but not ordered:: None Medication administrations:: Medication Administration History Discontinued Medications Famotidine (Famotidine Inj 10 Mg/Ml Vial 2 Ml) 20 mg IVP X1 ONE Stop: 03/01/25 22:14 Last Admin: 03/01/25 23:14 Dose: 20 mg Documented By: GETACHEW Ceftriaxone Sodium/Dextrose (Rocephin/D5w 1gm Iv Premix) 1 gm in 50 mls @ 100 mls/hr IV X1 ONE Stop: 03/01/25 22:43 Last Admin: 03/01/25 23:15 Dose: 100 mls/hr Documented By: GETACHEW Lactated Ringer's (Lactated Ringers) 1,000 mls @ 999 mls/hr IV .Q1H1M ONE Stop: 03/01/25 23:14 Metoclopramide HCl (Metoclopramide Inj 5 Mg/Ml Vial 2 Ml) 10 mg IVP X1 ONE; Protocol Stop: 03/01/25 22:14 Last Admin: 03/01/25 23:15 Dose: 10 mg Documented By: GETACHEW Pepcid, ceftriaxone IV, Reglan Consultations Consultation(s) initiated? (list below): No Diagnosis Dizziness Differential Diagnosis: other (Vomiting, gastritis, UTI) Most likely diagnosis given after review of the tests above:: UTI, vomiting Admission Indicated Admission indicated?: not indicated Explain why admission is indicated or not indicated:: Stable Admission Request Was there a request for admission?: No Disposition Plan Disposition Plan: Discharge Discharge Attestation Discharge Attestation: The patient and all family members were given an opportunity to ask questions and understood the discharge instructions. Discharge instructions specifically effects, indications for sooner follow up or return to the emergency department, and the expected course of current diagnosis. Patient condition: Stable Discharge Plan Plan Patient Disposition: HOME (Self Care) Discharge Disposition comment: Stable Prescriptions/Referrals Prescriptions/Med Rec: New metoclopramide HCl [Reglan] 10 mg tablet 10 mg PO Q6H PRN (Reason: nausea and vomiting) Qty: 20 0RF famotidine [Pepcid] 20 mg tablet 20 mg PO BID Qty: 14 0RF cefuroxime axetil 500 mg tablet 500 mg PO BID Qty: 14 0RF No Action ondansetron 4 mg tablet,disintegrating 4 mg PO Q8H PRN (Reason: Nausea And Vomiting) labetalol 200 mg tablet 200 mg PO BID 30 Days Qty: 60 2RF (DME) blood-glucose meter Kit See Rx Instructions .Route Qty: 1 0RF Rx Instructions: As directed, four times a day (fasting, 1hr after BF, 1hr after lunch, 1hr after dinner) (DME) lancets Misc See Rx Instructions .Route Qty: 200 0RF Rx Instructions: As directed (DME) Blood Glucose Test Strip See Rx Instructions .Route Qty: 100 0RF Rx Instructions: As directed Vitamin 27 mg iron- 800 mcg Tablet 1 tab PO QDAY acetaminophen-codeine 300-30 mg tablet 2 tab PO Q8H MDD 6 PRN (Reason: pain) Qty: 20 0RF acetaminophen-codeine 300-30 mg tablet 1 tab PO Q8H PRN (Reason: pain) Qty: 20 0RF ondansetron 4 mg tablet,disintegrating 4 mg PO Q6H PRN (Reason: nausea and vomiting) Qty: 10 0RF prochlorperazine maleate [Compazine] 5 mg tablet 5 mg PO TID PRN (Reason: nausea and vomiting) Qty: 14 0RF Referrals: No Primary/Family,Physician [Primary Care Provider] - In 1 week Problem List Clinical Impression: Nausea & vomiting, UTI (urinary tract infection) Patient/Caregiver Discharge Instructions Discharge Activity: activity as tolerated Education Materials: ED Vomiting (Adult) Additional Instructions: Thank you for the opportunity for serving you today. You are stable for discharged . You are advised to: Follow-up with your PCP in 1 to 2 days Return to ED for worsening of symptoms Increase oral fluids Take medication as prescribed Print Language: Ukrainian Stand Alone Forms: Estelita Award Info., Patient Portal Info Letter PA/BURGLAR ALARM MECHANIC Supervising Physician PA/BURGLAR ALARM MECHANIC Supervising Physician: MD Case
[2025-03-01] MEDS: FAMOTIDINE INJ 10 MG/ML VIAL 2 ML 20 MG IVP (23:14)
[2025-03-01] MEDS: cefTRIAXone/D5w 1gm IV premix 1 GM/50 ML BAG IV (23:15)
[2025-03-01] MEDS: METOCLOPRAMIDE INJ 5 MG/ML VIAL 2 ML 10 MG IVP (23:15)
[2025-03-01] MEDS: RINGERS LACTATED 1000 ML 1,000 ML 999 ML IV (23:28)
[2025-03-01 23:47] VITALS: BP 154/92; PULSE 90; RESP 20
[2025-03-02 00:04] VITALS: BP 138/86; PULSE 94; RESP 18; TEMP 36.8; O2SAT 95
== END 2025-03-02 00:07 | disposition home or self-care (01) ==
PROVIDERS: Physician Assistant; Emergency Provider Emergency Medicine
DX: N39.0 Urinary tract infection, site not specified (principal); R11.2 Nausea with vomiting, unspecified; E11.9 Type 2 diabetes mellitus without complications; Z86.15 Personal history of latent tuberculosis infection; Z86.11 Personal history of tuberculosis
CPT/HCPCS: 36415; 70450; 71045; 80053; 81001; 81025; 83735; 84484; 85025; 87086; 93005; 96365; 96375; 99284; J0696; J2765; J3490; J7120

== ENCOUNTER 2025-03-14 13:45 | Emergency (ER) | payer MEDICAID, SELFPAY ==
[2025-03-14 14:07] VITALS: BP 131/80; PULSE 78; RESP 17; TEMP 37.2; O2SAT 100
--- NOTE | 2025-03-14 15:10 | EKG_ITS ---
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
--- NOTE | 2025-03-14 15:10 | XR_ITS ---
Examination: AP chest single view Technique one AP portable upright chest single view Date and time: March 14, 2025 1529 hours INDICATIONS: Chest pain shortness of breath today. FINDINGS: Normal heart size The lungs are clear. The osseous structures are intact IMPRESSION: No active disease
--- NOTE | 2025-03-14 15:32 | EDNOTE_ITS ---
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 Denies fevers, chills, chest pain, shortness of breath, abdominal pain, nausea, vomiting. Patient states she is compliant with her TB medications, which she does not recall the name of. Additionally reports during her last ED visit 2 weeks ago, she was diagnosed with a UTI and completed course of antibiotics. At this time has no urinary symptoms or complaints. Related Data Home Medications ?Medication ?Instructions ?Recorded ?Confirmed vits no.124-ferrous fum 1 tab PO QDAY 4 11/17/23 27 mg iron-folic acid 800 mcg tablet ( Vitamin) ondansetron 4 mg disintegrating 4 mg PO Q8H PRN Nausea And Vomiting 11/17/23 11/17/23 tablet Previous Rx's ?Medication ?Instructions ?Recorded blood sugar diagnostic (Blood #100 ea 11/19/23 Glucose Test strips) blood-glucose meter #1 ea 11/19/23 labetalol 200 mg tablet 200 mg PO BID 30 days #60 ta bs 11/19/23 lancets #200 ea 11/19/23 acetaminophen 300 mg-codeine 30 mg 2 tab PO Q8H PRN pa in #20 tabs 12/30/24 tablet acetaminophen 300 mg-codeine 30 mg 1 tab PO Q8H PRN pa in #20 tabs 01/19/25 tablet ondansetron 4 mg disintegrating 4 mg PO Q6H PRN nausea and 02/04/25 tablet vomiting #10 tabs prochlorperazine maleate 5 mg 5 mg PO TID PRN nausea a nd 02/04/25 tablet (Compazine) vomiting #14 tabs cefuroxime axetil 500 mg tablet 500 mg PO BID #14 tabs 03/01/25 famotidine 20 mg tablet (Pepcid) 20 mg PO BID #14 tabs 03/01/25 metoclopramide HCl 10 mg tablet 10 mg PO Q6H PRN nause a and 03/01/25 (Reglan) vomiting #20 tabs pyridoxine (vitamin B6) 50 mg 50 mg PO QDAY vitamin us e #90 tabs 03/14/25 tablet Allergies Allergy/AdvReac Type Severity Reaction Status Date / Time No Known Allergies Allergy Verified 03/01/25 18:18 Review of Systems Review of Systems Systems Reviewed: All systems reviewed, normal except as documented Past Medical History Past Medical History RESPIRATORY: Positive Tuberculosis (December 2024) ENDOCRINE: Positive Endocrine Disorders HEMATOLOGIC: Positive Blood Disorders and Anemia OTHER HISTORY: Positive Hospitalization and Blood Transfusions Family History FAMILY HISTORY: Negative Family Psychiatric Problems, Family Respiratory Disorders, Family Cardiac Disorders, Family Gastrointestinal Problems, Family Cancer, Family Surgery or Family Anesthesia Reaction Social History SMOKING STATUS: Never smoker SECOND HAND EXPOSURE: No ED Exam General Limitations: Present no limitations General appearance: Present alert and in no apparent distress Head Head exam: Present atraumatic, normocephalic and normal inspection Eye Eye exam: Present normal appearance, PERRL and EOMI ENT ENT exam: Present normal exam, normal oropharynx and mucous membranes moist Neck Neck exam: Present normal inspection, full ROM and trachea midline Chest Chest inspection: Present normal inspection and symmetric chest wall rise Respiratory Respiratory exam: Present normal lung sounds bilaterally Cardiovascular Cardiovascular exam: Present regular rate, normal rhythm and normal heart sounds Abdominal Exam Abdominal exam: Present soft and normal bowel sounds Extremities Exam Extremities exam: Present normal inspection and full ROM Back Exam Back exam: Present normal inspection and full ROM Neurological Exam Neurological exam: Present alert, oriented X3 and CN II-XII intact Psychiatric Psychiatric exam: Present normal affect and normal mood Skin Skin exam: Present warm, dry, intact and normal color Course Quality Measures none Orders Category Date Time Status Senior Graphic Designer NOW Care 03/14/25 15:10 Active Continuous Pulse Oximetry NOW Care 03/14/25 15:10 Completed EKG (ED ONLY) *Do not use* NOW Care 03/14/25 15:10 Completed Insert IV NOW Care 03/14/25 15:10 Active EKG (ED Only) Stat Exams 03/14/25 15:10 Draft XR chest 1V portable Stat Exams 03/14/25 15:10 Completed CBC Stat Lab 03/14/25 15:31 Completed Comprehensive Metabolic Panel Stat Lab 03/14/25 15:31 Completed Drug Screen,Urine Stat Lab 03/14/25 17:11 Completed Prothrombin Time with INR Stat Lab 03/14/25 15:31 Completed Troponin I Stat Lab 03/14/25 15:31 Completed Urinalysis Stat Lab 03/14/25 17:11 Completed Pyridoxine Inj [Vitamin B-6 Inj] Med 03/14/25 15:19 Discontinued 100 mg IM X1 ONE Sodium Chloride 0.9% 1000 ml [Ns] 1,000 ml Med 03/14/25 15:10 Discontinued IV 999 mls/hr Vitamin B Complex [B-Complex/Vitamin B-12] Med 03/14/25 15:19 Discontinued 1 tab PO X1 ONE Vital Signs Vital signs: Vital Signs Temperature 99.0 F 03/14/25 14:07 Pulse Rate 78 03/14/25 14:07 Respiratory Rate 17 03/14/25 14:07 Blood Pressure 131/80 H 03/14/25 14:07 Pulse Oximetry (%) 100 03/14/25 14:07 Oxygen Delivery Method Room Air 03/14/25 14:07 Pulse ox is 100% on room air which is adequate. Weakness MDM Narrative MDM Narrative:: Emma Shipman am scribing for and in the presence of Dr. Rock. Patient data External records reviewed:: [facility] previous records (I reviewed ED Visit on 03/01/2025 ) Clinical information provided by:: patient Social determinants that could affect healthcare access:: none Patient has the following chronic illnesses:: DM, recently dx with TB and on TB medications How is presenting disease/condition affected by chronic disease/condition?: exacerbated by Evaluation data The following diagnostics were reviewed and interpreted by me:: lab results, radiology exam(s) and EKG tracing(s) (EKG @ 17:07 NSR, rate 81, no acute ischemic changes, no STEMI. ) Lab and/or radiology exams considered but not ordered:: None Interpretation Summary: Ordering Physician: Lawrence Rock MD Date of Service: 03/14/25 Procedure(s): XR chest 1V portable Accession Number(s): [id number] cc: Lawrence Rock MD; Casandra Marks NP; Tevin Pimentel MD~ Examination: AP chest single view Technique one AP portable upright chest single view Date and time: March 14, 2025 1529 hours INDICATIONS: Chest pain shortness of breath today. FINDINGS: Normal heart size The lungs are clear. The osseous structures are intact IMPRESSION: No active disease Dictated By: Tevin Pimentel MD Signed By: <Electronically signed by Tevin Pimentel MD in OV> 03/14/25 1550 Medications / Prescriptions Medications or Prescriptions considered but not ordered:: None Medication administrations:: Medication Administration History Discontinued Medications Sodium Chloride (Ns) 1,000 mls @ 999 mls/hr IV .Q1H1M ONE Stop: 03/14/25 16:10 Last Admin: 03/14/25 16:30 Dose: 999 mls/hr Documented By: DB Pyridoxine HCl (Pyridoxine Inj 100 Mg/Ml Vial) 100 mg IM X1 ONE Stop: 03/14/25 15:20 Vitamin B Complex/Vit C/Folic Acid (Vitamin B Complex Tablet) 1 tab PO X1 ONE Stop: 03/14/25 15:20 See above Consultations Consultation(s) initiated? (list below): No Diagnosis Weakness Differential Diagnosis: anemia, hypoglycemia, sepsis, dehydration and other (Viral illness ) Most likely diagnosis given after review of the tests above:: Weakness Admission Indicated Admission indicated?: not indicated Admission Request Was there a request for admission?: No Disposition Plan Disposition Plan: Discharge Discharge Attestation Discharge Attestation: The patient and all family members were given an opportunity to ask questions and understood the discharge instructions. Discharge instructions specifically effects, indications for sooner follow up or return to the emergency department, and the expected course of current diagnosis. Patient condition: Stable Discharge Plan Plan Patient Disposition: HOME (Self Care) Prescriptions/Referrals Prescriptions/Med Rec: New pyridoxine (vitamin B6) 50 mg tablet 50 mg PO QDAY MDD 1 Qty: 90 0RF No Action ondansetron 4 mg tablet,disintegrating 4 mg PO Q8H PRN (Reason: Nausea And Vomiting) labetalol 200 mg tablet 200 mg PO BID 30 Days Qty: 60 2RF (DME) blood-glucose meter Kit See Rx Instructions .Route Qty: 1 0RF Rx Instructions: As directed, four times a day (fasting, 1hr after BF, 1hr after lunch, 1hr after dinner) (DME) lancets Misc See Rx Instructions .Route Qty: 200 0RF Rx Instructions: As directed (DME) Blood Glucose Test Strip See Rx Instructions .Route Qty: 100 0RF Rx Instructions: As directed Vitamin 27 mg iron- 800 mcg Tablet 1 tab PO QDAY acetaminophen-codeine 300-30 mg tablet 2 tab PO Q8H MDD 6 PRN (Reason: pain) Qty: 20 0RF acetaminophen-codeine 300-30 mg tablet 1 tab PO Q8H PRN (Reason: pain) Qty: 20 0RF ondansetron 4 mg tablet,disintegrating 4 mg PO Q6H PRN (Reason: nausea and vomiting) Qty: 10 0RF prochlorperazine maleate [Compazine] 5 mg tablet 5 mg PO TID PRN (Reason: nausea and vomiting) Qty: 14 0RF metoclopramide HCl [Reglan] 10 mg tablet 10 mg PO Q6H PRN (Reason: nausea and vomiting) Qty: 20 0RF famotidine [Pepcid] 20 mg tablet 20 mg PO BID Qty: 14 0RF cefuroxime axetil 500 mg tablet 500 mg PO BID Qty: 14 0RF Referrals: Casandra Marks, RADIO MECHANIC HELPER [Primary Care Provider] - In 1 week Problem List Clinical Impression: Weakness Patient/Caregiver Discharge Instructions Discharge Activity: activity as tolerated Education Materials: ED Weakness (Uncertain Cause) Additional Instructions: Follow-up with your doctor next available appointment. Take your vitamin that has been prescribed on daily basis. Continue your other medications. Print Language: Martiniquais Stand Alone Forms: Estelita Award Info., Patient Portal Info Letter
[2025-03-14 15:42] VITALS: PULSE 81
[2025-03-14 15:49] LABS: Basophils # (Auto) 0.0 Thou/mm3 (0.0-0.2); Basophils % (Auto) 0 % (0-2.5); Eosinophils # (Auto) 0.2 Thou/mm3 (0.0-0.5); Eosinophils % (Auto) 1 % (0-10); Hematocrit 30.0 % (36.0-46.0); Hemoglobin 9.8 g/dL (12.0-16.0); Immature Granulocytes Auto 0.06 Thou/mm3 (0.00-0.00); Lymphocytes # (Auto) 1.1 Thou/mm3 (1.0-4.8); Lymphocytes % (Auto) 7 % (10-50); Mean Corpuscular HGB Conc 32.7 g/dl (31.0-37.0); Mean Corpuscular Hemoglobin 24.5 pg (25.0-35.0); Mean Corpuscular Volume 75 fL (80-100); Monocytes # (Auto) 0.8 Thou/mm3 (0.0-0.8); Monocytes % (Auto) 5 % (0-12); Neutrophils # (Auto) 13.5 Thou/mm3 (1.8-7.7); Neutrophils % (Auto) 86 % (37-80); Nucleated Red Blood Cell # 0.00 Thou/mm3 (0.00-0.00); Nucleated Red Blood Cell % 0 /100 WBC (0); Platelet Count 320 Thou/mm3 (140-440); RDW Standard Deviation 45.5 fL (36.4-46.3); Red Blood Count 4.00 Miln/mm3 (4.00-5.20); White Blood Count 15.7 Thou/mm3 (3.6-11.0)
[2025-03-14 16:00] VITALS: BP 154/87; PULSE 81; RESP 12; O2SAT 100
[2025-03-14 16:03] VITALS: BMI 24.0
[2025-03-14 16:03] LABS: Alanine Aminotransferase 47 U/L (10-49); Albumin, Serum 4.4 gm/dL (3.5-5.0); Albumin/Globulin Ratio 1.5 (1.2-2.2); Alkaline Phosphatase 106 U/L (46-116); Anion Gap 11 (7-16); Aspartate Amino Transferase 41 U/L (0-34); BUN/Creatinine Ratio 13 Ratio (12-20); Bilirubin,Total 0.5 mg/dL (0.3-1.2); Blood Urea Nitrogen 10 mg/dL (9-23); Calcium 8.7 mg/dL (8.3-10.6); Calcium (Corrected) 8.7 mg/dL (8.5-10.1); Carbon Dioxide 26.3 mMol/L (20.0-31.0); Chloride 103 mMol/L (98-107); Creatinine (Component) 0.8 mg/dL (0.6-1.3); Globulin 2.9 gm/dL (2.3-3.5); Glucose 107 mg/dL (74-106); Osmolality,Calculated 278 (275-295); Potassium 3.4 mMol/L (3.4-5.1); Sodium 140 mMol/L (136-145); Total Protein 7.3 gm/dL (5.7-8.2); Troponin I < 0.020 ng/mL (0.0-0.045); eGFR > 60 See Note
[2025-03-14 16:11] LABS: INR 1.0 (0.9-1.3); Prothrombin Time 11.0 Seconds (9.0-12.2)
[2025-03-14] MEDS: SODIUM CHLORIDE 0.9% 1000 ML 1,000 ML 999 ML IV (16:30)
[2025-03-14 17:16] LABS: Collection Type, Urine Clean Catch
[2025-03-14 17:28] LABS: Amphetamine/Methamp Scrn,U Negative (Negative); Barbiturate Screen,Urine Positive (Negative); Benzodiazepines Screen,Urine Negative (Negative); Benzoylecgonine Screen, Ur Negative (Negative); Fentanyl Screen,Urine Negative (Negative); Opiate Screen,Urine Negative (Negative); THC Screen,Urine Negative (Negative)
[2025-03-14 17:38] LABS: Bacteria,Urine Rare; Bilirubin,Urine Negative (Negative); Blood,Urine Trace (Negative); Clarity,Urine Clear (Clear/Hazy); Color,Urine Drk-Yellow (Lt Yel-Yel); Glucose, Urine Negative (Negative); Ketones,Urine Negative (Negative); Leukocyte Esterase,Urine Positive (Negative); Nitrite,Urine Negative (Negative); PH,Urine 6.0 (5.0-7.0); Protein,Urine Negative (Neg - Trace); RBC,Urine 1 /hpf (0-3); Specific Gravity,Urine 1.010 (1.001-1.035); Squamous Epithelial Cell,Urine 1 /hpf (0-5); Urobilinogen,Urine Negative mg/dL (0.0-1.0); WBC,Urine 4 /hpf (0-5)
[2025-03-14] MEDS: VITAMIN B COMPLEX TABLET 1 TAB PO (18:14)
--- NOTE | 2025-03-14 18:25 | PC.NURSE ---
DR. MARTINEZ MADE AWARE THAT THIS PT WAS DC BY DR. NELSON, BUT PT REPORTED TO ME THAT SHE IS STILL FEELING WEAK AND DOES NOT FEEL SAFE TO DC. DR. MARTINEZ REPORTED BACK TO ME THAT THE PT HAS ALREADY BEEN SEEN AND EVALUATED BY DR. NELSON WHO IS A BOARD CERTIFIED PHYSICIAN AND THAT SHE IS STABLE TO GO HOME. I RELAYED THIS MESSAGE BACK TO THE PT AND THE PT DAUGHTER, BUT THE PT STILL REPORTS THAT SHE IS NOT SAFE TO GO HOME DUE TO HER WEAKNESS. PT WAS MADE AWARE THAT I WILL ESCALATED THIS ISSUE TO THE NURSE IN CHARGE.
--- NOTE | 2025-03-14 19:11 | PC.NURSE ---
CALLED AND INFORMED TONIO RIVER ABOUT PT ISSUE, TONIO RIVERROAD PRODUCTION GENERAL MANAGER CAME TO TALK TO PT.
[2025-03-14 19:16] VITALS: BP 143/74; PULSE 88; RESP 16; TEMP 37.1; O2SAT 100
== END 2025-03-14 19:18 | disposition home or self-care (01) ==
PROVIDERS: Emergency Provider Family Medicine; PCP Nurse Practitioner Women's Health
DX: R53.1 Weakness (principal); R07.9 Chest pain, unspecified; R06.02 Shortness of breath
CPT/HCPCS: 36415; 71045; 80053; 80307; 81001; 84484; 85025; 85610; 93005; 96360; 96361; 96372; 99285; J3415; J7030; A9270

== ENCOUNTER 2025-03-16 12:43 | Emergency (ER) | payer MEDICAID, SELFPAY ==
[2025-03-16 12:44] VITALS: BMI 27.4
[2025-03-16 12:57] VITALS: BP 124/84; PULSE 88; RESP 18; TEMP 37.3; O2SAT 99
--- NOTE | 2025-03-16 13:13 | PD.EDRME ---
Rapid Medical Screening Exam RME Arrival date/time: 03/16/25 12:43 45-year-old female presents to the Emergency Department for complaint of generalized weakness Patient was seen 2 days ago for similar symptoms patient reports he is currently on treatment for TB Chief Complaint: General Adult/Misc Complain Time Seen by Provider: 03/16/25 13:09 Vital signs: Vital Signs Temperature 99.1 F 03/16/25 12:57 Pulse Rate 88 03/16/25 12:57 Respiratory Rate 18 03/16/25 12:57 Blood Pressure 124/84 03/16/25 12:57 Pulse Oximetry (%) 99 03/16/25 12:57 Oxygen Delivery Method Room Air 03/16/25 12:57
[2025-03-16 13:47] LABS: Collection Type, Urine Clean Catch
[2025-03-16 14:01] LABS: Lactate (Lactic Acid) 0.9 mMol/L (0.4-2.0)
[2025-03-16 14:10] LABS: Bilirubin,Urine Negative (Negative); Blood,Urine 1+ (Negative); Clarity,Urine Turbid (Clear/Hazy); Color,Urine Lt-Yellow (Lt Yel-Yel); Glucose, Urine Negative (Negative); Ketones,Urine Negative (Negative); Leukocyte Esterase,Urine Positive (Negative); Nitrite,Urine Negative (Negative); PH,Urine 6.0 (5.0-7.0); Protein,Urine Trace (Neg - Trace); RBC,Urine 3 /hpf (0-3); Specific Gravity,Urine 1.024 (1.001-1.035); Squamous Epithelial Cell,Urine 9 /hpf (0-5); Urobilinogen,Urine Negative mg/dL (0.0-1.0); WBC,Urine 21 /hpf (0-5)
[2025-03-16 14:18] LABS: Culture Indicated,Urine Yes
[2025-03-16 14:22] LABS: Basophils # (Auto) 0.0 Thou/mm3 (0.0-0.2); Basophils % (Auto) 1 % (0-2.5); Eosinophils # (Auto) 0.1 Thou/mm3 (0.0-0.5); Eosinophils % (Auto) 2 % (0-10); Hematocrit 34.8 % (36.0-46.0); Hemoglobin 11.1 g/dL (12.0-16.0); Immature Granulocytes Auto 0.02 Thou/mm3 (0.00-0.00); Lymphocytes # (Auto) 1.5 Thou/mm3 (1.0-4.8); Lymphocytes % (Auto) 23 % (10-50); Mean Corpuscular HGB Conc 31.9 g/dl (31.0-37.0); Mean Corpuscular Hemoglobin 23.8 pg (25.0-35.0); Mean Corpuscular Volume 75 fL (80-100); Monocytes # (Auto) 0.4 Thou/mm3 (0.0-0.8); Monocytes % (Auto) 6 % (0-12); Neutrophils # (Auto) 4.5 Thou/mm3 (1.8-7.7); Neutrophils % (Auto) 69 % (37-80); Nucleated Red Blood Cell # 0.00 Thou/mm3 (0.00-0.00); Nucleated Red Blood Cell % 0 /100 WBC (0); Platelet Count 397 Thou/mm3 (140-440); RDW Standard Deviation 45.1 fL (36.4-46.3); Red Blood Count 4.66 Miln/mm3 (4.00-5.20); White Blood Count 6.6 Thou/mm3 (3.6-11.0)
[2025-03-16 14:29] LABS: Alanine Aminotransferase 57 U/L (10-49); Albumin, Serum 4.9 gm/dL (3.5-5.0); Albumin/Globulin Ratio 1.5 (1.2-2.2); Alkaline Phosphatase 105 U/L (46-116); Anion Gap 11 (7-16); Aspartate Amino Transferase 48 U/L (0-34); BUN/Creatinine Ratio 7 Ratio (12-20); Bilirubin,Total 0.3 mg/dL (0.3-1.2); Blood Urea Nitrogen 6 mg/dL (9-23); Calcium 9.7 mg/dL (8.3-10.6); Calcium (Corrected) 9.7 mg/dL (8.5-10.1); Carbon Dioxide 26.5 mMol/L (20.0-31.0); Chloride 105 mMol/L (98-107); Creatinine (Component) 0.9 mg/dL (0.6-1.3); Estimated Creatinine Clearance 72.9 mL/min (>60); Globulin 3.2 gm/dL (2.3-3.5); Glucose 114 mg/dL (74-106); Osmolality,Calculated 281 (275-295); Potassium 3.8 mMol/L (3.4-5.1); Procalcitonin < 0.04 ng/ml (0.0-0.49); Sodium 142 mMol/L (136-145); Total Protein 8.1 gm/dL (5.7-8.2); Troponin I < 0.020 ng/mL (0.0-0.045); eGFR > 60 See Note
[2025-03-16 16:08] VITALS: BP 127/81; PULSE 79; RESP 18; TEMP 37.3; O2SAT 96
--- NOTE | 2025-03-16 16:52 | EDNOTE_ITS ---
ED General RME/HPI General Chief complaint: General Adult/Misc Complain Stated complaint: WEAK, NOT EATING, COLD, VOMITING x 3 DAYS Time Seen by Provider: 03/16/25 13:09 Arrival date/time: 03/16/25 12:43 RME / HPI RME / HPI narrative: 45-year-old female presents to the Emergency Department for complaint of generalized weakness been ongoing for 3 days, associated with poor appetite, not feeling well, nausea, epigastric pain severity mild. Denies any fever. Patient was seen 2 days ago for similar symptoms patient reports he is currently on treatment for TB Related Data Home Medications ?Medication ?Instructions ?Recorded ?Confirmed vits no.124-ferrous fum 1 tab PO QDAY 4 11/17/23 27 mg iron-folic acid 800 mcg tablet ( Vitamin) ondansetron 4 mg disintegrating 4 mg PO Q8H PRN Nausea And Vomiting 11/17/23 11/17/23 tablet Previous Rx's ?Medication ?Instructions ?Recorded blood sugar diagnostic (Blood #100 ea 11/19/23 Glucose Test strips) blood-glucose meter #1 ea 11/19/23 labetalol 200 mg tablet 200 mg PO BID 30 days #60 ta bs 11/19/23 lancets #200 ea 11/19/23 acetaminophen 300 mg-codeine 30 mg 2 tab PO Q8H PRN pa in #20 tabs 12/30/24 tablet acetaminophen 300 mg-codeine 30 mg 1 tab PO Q8H PRN pa in #20 tabs 01/19/25 tablet ondansetron 4 mg disintegrating 4 mg PO Q6H PRN nausea and 02/04/25 tablet vomiting #10 tabs prochlorperazine maleate 5 mg 5 mg PO TID PRN nausea a nd 02/04/25 tablet (Compazine) vomiting #14 tabs cefuroxime axetil 500 mg tablet 500 mg PO BID #14 tabs 03/01/25 famotidine 20 mg tablet (Pepcid) 20 mg PO BID #14 tabs 03/01/25 metoclopramide HCl 10 mg tablet 10 mg PO Q6H PRN nause a and 03/01/25 (Reglan) vomiting #20 tabs pyridoxine (vitamin B6) 50 mg 50 mg PO QDAY vitamin us e #90 tabs 03/14/25 tablet ciprofloxacin HCl 500 mg tablet 500 mg PO BID #14 tabs 03/16/25 (Cipro) famotidine 40 mg tablet (Pepcid) 40 mg PO BID #30 tabs 03/16/25 ondansetron HCl 4 mg tablet 4 mg PO TID PRN nausea and 03/16/25 vomiting 5 days #20 tabs Allergies Allergy/AdvReac Type Severity Reaction Status Date / Time No Known Allergies Allergy Verified 03/16/25 12:47 Review of Systems Review of Systems Narrative Review of Systems: Review of system reviewed and within normal limits except mentioned in HPI ED Exam Narrative Physical exam: VITAL SIGNS: Reviewed. GENERAL APPEARANCE: Alert and interactive, follows commands, no acute distress, HEAD AND FACE: Non-traumatic. ENT: PERRL, pink conjunctivitis, eyelid no trauma, Mucous membrane moist. NECK: Supple, nontender, no nuchal rigidity. CHEST: No tenderness, no crepitus, no paradoxical movement, no retractions. LUNGS: Clear, well ventilated, symmetric, no rales, no wheezing, no ronchi, no stridor, good breath sounds bilaterally. HEART: Regular rate, regular rhythm, no murmur, no gallops. ABDOMEN: Soft, positive bowel sounds, nondistended, no guarding, nontender, no rebound, no masses, RECTAL: Deferred. GENITAL: Deferred. NEUROLOGICAL: Gross motor function intact sensory function intact, Appropriate for age. MUSCULOSKELETAL: low back nontender, full range of motion. EXTREMITIES: Nontender, full range of motion. SKIN: Color pink, dry, no rash, no lacerations, no abrasions, no contusions. LYMPHATICS: Deferred. Course Quality Measures none Orders Category Date Time Status Blood Culture (Lab) Stat Lab 03/16/25 13:48 Received CBC Stat Lab 03/16/25 13:48 Completed Comprehensive Metabolic Panel Stat Lab 03/16/25 13:48 Completed Lactic Acid [Lactate (Lactic Acid)] Stat Lab 03/16/25 13:48 Completed Procalcitonin Stat Lab 03/16/25 13:48 Completed Troponin I Stat Lab 03/16/25 13:48 Completed UA, C/S IF [Urinalysis, C/S if Indicated] Stat Lab 03/16/25 13:30 Completed Urine Culture Stat Lab 03/16/25 13:30 Received Acetaminophen Tab [Tylenol ES Tab] Med 03/16/25 16:48 Discontinued 1,000 mg PO X1 ONE Ciprofloxacin HCl [Ciprofloxacin] Med 03/16/25 16:48 Discontinued 500 mg PO X1 ONE Famotidine [Pepcid] Med 03/16/25 16:48 Discontinued 40 mg PO X1 ONE Ondansetron Odt [Zofran Odt] Med 03/16/25 16:48 Discontinued 4 mg PO X1 ONE cephALEXin [Keflex] Med 03/16/25 16:40 Discontinued 500 mg PO X1 ONE Vital Signs Vital signs: Vital Signs Temperature 99.1 F 03/16/25 12:57 Pulse Rate 88 03/16/25 12:57 Respiratory Rate 18 03/16/25 12:57 Blood Pressure 124/84 03/16/25 12:57 Pulse Oximetry (%) 99 03/16/25 12:57 Oxygen Delivery Method Room Air 03/16/25 12:57 Discharge Plan Plan Patient Disposition: HOME (Self Care) Discharge Disposition comment: Stable Prescriptions/Referrals Prescriptions/Med Rec: New ciprofloxacin HCl [Cipro] 500 mg tablet 500 mg PO BID Qty: 14 0RF ondansetron HCl 4 mg tablet 4 mg PO TID PRN (Reason: nausea and vomiting) 5 Days Qty: 20 0RF famotidine [Pepcid] 40 mg tablet 40 mg PO BID Qty: 30 0RF No Action ondansetron 4 mg tablet,disintegrating 4 mg PO Q8H PRN (Reason: Nausea And Vomiting) labetalol 200 mg tablet 200 mg PO BID 30 Days Qty: 60 2RF (DME) blood-glucose meter Kit See Rx Instructions .Route Qty: 1 0RF Rx Instructions: As directed, four times a day (fasting, 1hr after BF, 1hr after lunch, 1hr after dinner) ([facility] lancets Misc See Rx Instructions .Route Qty: 200 0RF Rx Instructions: As directed (DME) Blood Glucose Test Strip See Rx Instructions .Route Qty: 100 0RF Rx Instructions: As directed Vitamin 27 mg iron- 800 mcg Tablet 1 tab PO QDAY acetaminophen-codeine 300-30 mg tablet 2 tab PO Q8H MDD 6 PRN (Reason: pain) Qty: 20 0RF acetaminophen-codeine 300-30 mg tablet 1 tab PO Q8H PRN (Reason: pain) Qty: 20 0RF ondansetron 4 mg tablet,disintegrating 4 mg PO Q6H PRN (Reason: nausea and vomiting) Qty: 10 0RF prochlorperazine maleate [Compazine] 5 mg tablet 5 mg PO TID PRN (Reason: nausea and vomiting) Qty: 14 0RF metoclopramide HCl [Reglan] 10 mg tablet 10 mg PO Q6H PRN (Reason: nausea and vomiting) Qty: 20 0RF famotidine [Pepcid] 20 mg tablet 20 mg PO BID Qty: 14 0RF cefuroxime axetil 500 mg tablet 500 mg PO BID Qty: 14 0RF pyridoxine (vitamin B6) 50 mg tablet 50 mg PO QDAY MDD 1 Qty: 90 0RF Referrals: Adam Sherman MD [Primary Care Provider, Family Practice] - In 1 week Problem List Clinical Impression: Weakness, UTI (urinary tract infection) Patient/Caregiver Discharge Instructions Discharge Activity: activity as tolerated Education Materials: Understanding Urinary Tract ... Additional Instructions: Thank you for the opportunity for serving you today. You are stable for discharged . You are advised to: Follow-up with your PCP in 1 to 2 days Return to ED for worsening of symptoms Increase oral fluids Take medication as prescribed Print Language: Polish Stand Alone Forms: Estelita Award Info., Patient Portal Info Letter BETTE/JILLIAN Supervising Physician BETTE/JILLIAN Supervising Physician: MD Pranav MDM Narrative MDM hospital course (for use when minimal MDM required): 45-year-old female presents to the Emergency Department for complaint of generalized weakness been ongoing for 3 days, associated with poor appetite, not feeling well, nausea, epigastric pain severity mild. Denies any fever. Patient was seen 2 days ago for similar symptoms patient reports he is currently on treatment for TB Patient's blood work all came back unremarkable except for UTI. 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 Medication Administration(s) Medication Administration History Discontinued Medications Acetaminophen (Acetaminophen 500 Mg Tablet) 1,000 mg PO X1 ONE Stop: 03/16/25 16:49 Cephalexin HCl (Cephalexin 250 Mg Capsule) 500 mg PO X1 ONE Stop: 03/16/25 16:41 Last Admin: 03/16/25 16:50 Dose: 500 mg Documented By: PARAG Ciprofloxacin (Ciprofloxacin Hcl 250 Mg Tablet) 500 mg PO X1 ONE Stop: 03/16/25 16:49 Famotidine (Famotidine 20 Mg Tablet) 40 mg PO X1 ONE Stop: 03/16/25 16:49 Ondansetron HCl (Ondansetron Odt 4 Mg Tabrap) 4 mg PO X1 ONE; Protocol Stop: 03/16/25 16:49 Diagnosis Differential Diagnosis ED Complaint MDM: Generalized weakness, adverse effect medications, gastritis, UTI, on TB me Diagnoses ruled out and/or further discussions: Generalized weakness, UTI, continue meds
[2025-03-16] MEDS: CIPROFLOXACIN HCL 250 MG TABLET 500 MG PO (16:55)
[2025-03-16] MEDS: ONDANSETRON ODT 4 MG TABRAP PO (16:56)
[2025-03-16] MEDS: FAMOTIDINE 20 MG TABLET 40 MG PO (16:56)
[2025-03-16] MEDS: ACETAMINOPHEN 500 MG TABLET 1000 MG PO (16:56)
[2025-03-16 17:08] VITALS: BP 124/82; PULSE 88
== END 2025-03-16 17:08 | disposition home or self-care (01) ==
PROVIDERS: Nurse Practitioner Primary Care; Emergency Provider Family Medicine; PCP Family Medicine
DX: N39.0 Urinary tract infection, site not specified (principal); R53.1 Weakness
CPT/HCPCS: 36415; 80053; 81001; 83605; 84145; 84484; 85025; 87040; 87086; 99283; Q0162; A9270

== ENCOUNTER 2025-03-18 08:55 | Emergency (ER) | payer MEDICAID, SELFPAY ==
[2025-03-18 08:59] VITALS: PULSE 86; RESP 16; O2SAT 96; BMI 23.8
[2025-03-18 09:16] VITALS: BP 133/85; PULSE 80; RESP 16; TEMP 37.5; O2SAT 99
--- NOTE | 2025-03-18 10:11 | EDNOTE_ITS ---
ED Weakness RME/HPI General Chief complaint: Weakness Stated complaint: WEAKNESS Time Seen by Provider: 03/18/25 09:34 Arrival date/time: 03/18/25 08:55 Limitations: no limitations RME / HPI RME / HPI Narrative: 45 year old female with history of diabetes and recently diagnosed with TB (currently on TB medications, does not recall medication names) presents to the ED for evaluation of I feel bad and generalized weakness today. Reports similar weakness (that remains unchanges) occurring intermittently over the last 2 weeks and had been evaluated here twice since onset. Additionally complains of intermittent vague abdominal pain, nausea, vomiting. Denies fevers, chills, chest pain, shortness of breath, or urinary symptoms. Patient states she is compliant with her TB medications though she feels are making her feel weak. Related Data Home Medications ?Medication ?Instructions ?Recorded ?Confirmed vits no.124-ferrous fum 1 tab PO QDAY 4 11/17/23 27 mg iron-folic acid 800 mcg tablet ( Vitamin) ondansetron 4 mg disintegrating 4 mg PO Q8H PRN Nausea And Vomiting 11/17/23 11/17/23 tablet Previous Rx's ?Medication ?Instructions ?Recorded blood sugar diagnostic (Blood #100 ea 11/19/23 Glucose Test strips) blood-glucose meter #1 ea 11/19/23 labetalol 200 mg tablet 200 mg PO BID 30 days #60 ta bs 11/19/23 lancets #200 ea 11/19/23 acetaminophen 300 mg-codeine 30 mg 2 tab PO Q8H PRN pa in #20 tabs 12/30/24 tablet acetaminophen 300 mg-codeine 30 mg 1 tab PO Q8H PRN pa in #20 tabs 01/19/25 tablet ondansetron 4 mg disintegrating 4 mg PO Q6H PRN nausea and 02/04/25 tablet vomiting #10 tabs prochlorperazine maleate 5 mg 5 mg PO TID PRN nausea a nd 02/04/25 tablet (Compazine) vomiting #14 tabs cefuroxime axetil 500 mg tablet 500 mg PO BID #14 tabs 03/01/25 famotidine 20 mg tablet (Pepcid) 20 mg PO BID #14 tabs 03/01/25 metoclopramide HCl 10 mg tablet 10 mg PO Q6H PRN nause a and 03/01/25 (Reglan) vomiting #20 tabs pyridoxine (vitamin B6) 50 mg 50 mg PO QDAY vitamin us e #90 tabs 03/14/25 tablet ciprofloxacin HCl 500 mg tablet 500 mg PO BID #14 tabs 03/16/25 (Cipro) famotidine 40 mg tablet (Pepcid) 40 mg PO BID #30 tabs 03/16/25 ondansetron HCl 4 mg tablet 4 mg PO TID PRN nausea and 03/16/25 vomiting 5 days #20 tabs bisacodyl 10 mg rectal suppository 10 mg [place] QDAY PRN c onstipation #3 03/18/25 (Dulcolax (bisacodyl)) ea polyethylene glycol 3350 17 gram 17 g PO QDAY #14 ea 0 03/18/25 oral powder packet (Miralax) Allergies Allergy/AdvReac Type Severity Reaction Status Date / Time No Known Allergies Allergy Verified 03/16/25 12:47 Review of Systems Review of Systems Systems Reviewed: All systems reviewed, normal except as documented Past Medical History Past Medical History RESPIRATORY: Positive Tuberculosis ENDOCRINE: Positive Endocrine Disorders HEMATOLOGIC: Positive Blood Disorders and Anemia OTHER HISTORY: Positive Hospitalization and Blood Transfusions Social History SMOKING STATUS: Never smoker SECOND HAND EXPOSURE: No ED Exam General Limitations: Present no limitations General appearance: Present alert and in no apparent distress Head Head exam: Present atraumatic, normocephalic and normal inspection Eye Eye exam: Present normal appearance, PERRL and EOMI ENT ENT exam: Present normal exam, normal oropharynx and mucous membranes moist Neck Neck exam: Present normal inspection, full ROM and trachea midline Chest Chest inspection: Present normal inspection and symmetric chest wall rise Respiratory Respiratory exam: Present normal lung sounds bilaterally; Absent respiratory distress, wheezes or stridor Cardiovascular Cardiovascular exam: Present regular rate, normal rhythm and normal heart sounds Abdominal Exam Abdominal exam: Present soft; Absent distention, tenderness, guarding or rebound Extremities Exam Extremities exam: Present normal inspection and full ROM Back Exam Back exam: Present normal inspection and full ROM Neurological Exam Neurological exam: Present alert, oriented X3 and CN II-XII intact Psychiatric Psychiatric exam: Present normal affect and normal mood Skin Skin exam: Present warm, dry, intact and normal color Course Quality Measures none Orders Category Date Time Status Bedside COVID-19 Antigen Test NOW Care 03/18/25 10:10 Active Bedside Influenza A&B Antigen Test NOW Care 03/18/25 10:11 Completed KUB [XR abdomen 1V] Stat Exams 03/18/25 11:30 Completed CBC Stat Lab 03/18/25 10:55 Completed CMP [Comprehensive Metabolic Panel] Stat Lab 03/18/25 10:55 Completed HCG,Qualitative Serum Stat Lab 03/18/25 10:55 Completed PT [Prothrombin Time with INR] Stat Lab 03/18/25 10:55 Completed UA, C/S IF [Urinalysis, C/S if Indicated] Stat Lab 03/18/25 10:10 Ordered Vital Signs Vital signs: Vital Signs Temperature 99.5 F 03/18/25 09:16 Pulse Rate 80 03/18/25 09:16 Respiratory Rate 16 03/18/25 09:16 Blood Pressure 133/85 H 03/18/25 09:16 Pulse Oximetry (%) 99 03/18/25 09:16 Oxygen Delivery Method Room Air 03/18/25 09:16 Pulse ox is 99% on room air which is adequate. Weakness MDM Narrative MDM Narrative:: Emma Shipman am scribing for and in the presence of Dr. Nunes. Patient is a 45-year-old female is in the [facility] apartment with concerns for weakness. Vital signs and exam as listed. Concern for electrolyte abnormality constipation urinary tract infection among others. Also concern for medication side effect as patient is currently taking medications for management of TB. Patient without any focal neurodeficits, no rashes, abdomen soft nondistended nontender, less likely meningitis encephalitis acute abdomen. Patient is hemodynamically stable. Labs with evidence of hemoglobin 10.9 this is patient's baseline. Patient has microcytic anemia. No thrombocytopenia. No leukocytosis, no left shift. No significant acute electrolyte abnormalities, no evidence of renal failure, no significant transaminitis, liver function test normal. Patient with constipation. Will provide with a bowel regimen. Patient is COVID and flu negative. On reevaluation patient hemodynamically stable not distressed will discharge to home with close return precautions follow-up with primary care doctor. I did offer patient fluids however she declined. I highly advised patient to discuss with her primary care doctor of the management of her TB and see if there is an alternate regimen that she could start that may help her with her symptoms. Patient in agreement. Patient discharged hemodynamically stable not in distress Patient data External records reviewed:: [facility] previous records (I reviewed ED visit on 03/16/2025) Clinical information provided by:: patient Social determinants that could affect healthcare access:: none Patient has the following chronic illnesses:: diabetes and recently diagnosed with TB (currently on TB medications, does not recall medication names) How is presenting disease/condition affected by chronic disease/condition?: exacerbated by Evaluation data The following diagnostics were reviewed and interpreted by me:: lab results and radiology exam(s) Lab and/or radiology exams considered but not ordered:: None Interpretation Summary: See [facility] Medications / Prescriptions Medications or Prescriptions considered but not ordered:: None Medication administrations:: See above Consultations Consultation(s) initiated? (list below): No Diagnosis Weakness Differential Diagnosis: other Most likely diagnosis given after review of the tests above:: See [facility] Admission Indicated Admission indicated?: not indicated Admission Request Was there a request for admission?: No Disposition Plan Disposition Plan: Discharge Discharge Attestation Discharge Attestation: The patient and all family members were given an opportunity to ask questions and understood the discharge instructions. Discharge instructions specifically effects, indications for sooner follow up or return to the emergency department, and the expected course of current diagnosis. Patient condition: Stable Discharge Plan Plan Patient Disposition: HOME (Self Care) Prescriptions/Referrals Prescriptions/Med Rec: New bisacodyl [Dulcolax (bisacodyl)] 10 mg suppository 10 mg [place] QDAY MDD 10mg PRN (Reason: constipation) Qty: 3 0RF polyethylene glycol 3350 [Miralax] 17 gram powder in packet 17 g PO QDAY Qty: 14 0RF No Action ondansetron 4 mg tablet,disintegrating 4 mg PO Q8H PRN (Reason: Nausea And Vomiting) labetalol 200 mg tablet 200 mg PO BID 30 Days Qty: 60 2RF (DME) blood-glucose meter Kit See Rx Instructions .Route Qty: 1 0RF Rx Instructions: As directed, four times a day (fasting, 1hr after BF, 1hr after lunch, 1hr after dinner) (DME) lancets [facility] See Rx Instructions .Route Qty: 200 0RF Rx Instructions: As directed (DME) Blood Glucose Test Strip See Rx Instructions .Route Qty: 100 0RF Rx Instructions: As directed Vitamin 27 mg iron- 800 mcg Tablet 1 tab PO QDAY acetaminophen-codeine 300-30 mg tablet 2 tab PO Q8H MDD 6 PRN (Reason: pain) Qty: 20 0RF acetaminophen-codeine 300-30 mg tablet 1 tab PO Q8H PRN (Reason: pain) Qty: 20 0RF ondansetron 4 mg tablet,disintegrating 4 mg PO Q6H PRN (Reason: nausea and vomiting) Qty: 10 0RF prochlorperazine maleate [Compazine] 5 mg tablet 5 mg PO TID PRN (Reason: nausea and vomiting) Qty: 14 0RF metoclopramide HCl [Reglan] 10 mg tablet 10 mg PO Q6H PRN (Reason: nausea and vomiting) Qty: 20 0RF famotidine [Pepcid] 20 mg tablet 20 mg PO BID Qty: 14 0RF cefuroxime axetil 500 mg tablet 500 mg PO BID Qty: 14 0RF pyridoxine (vitamin B6) 50 mg tablet 50 mg PO QDAY MDD 1 Qty: 90 0RF ciprofloxacin HCl [Cipro] 500 mg tablet 500 mg PO BID Qty: 14 0RF ondansetron HCl 4 mg tablet 4 mg PO TID PRN (Reason: nausea and vomiting) 5 Days Qty: 20 0RF famotidine [Pepcid] 40 mg tablet 40 mg PO BID Qty: 30 0RF Referrals: No Primary/Family,Physician [Primary Care Provider] - In 1 week Problem List Clinical Impression: Weakness, Constipation Patient/Caregiver Discharge Instructions Additional Instructions: Le recomiendo que consulte con price m?dico para dash si puede ajustar la medicaci?n debido a la tolerancia o los efectos secundarios. Nery asim agua y descanse. Print Language: Swiss Stand Alone Forms: Estelita Award Info., Patient Portal Info Letter
[2025-03-18 11:10] LABS: Basophils # (Auto) 0.0 Thou/mm3 (0.0-0.2); Basophils % (Auto) 0 % (0-2.5); Eosinophils # (Auto) 0.1 Thou/mm3 (0.0-0.5); Eosinophils % (Auto) 2 % (0-10); Hematocrit 33.7 % (36.0-46.0); Hemoglobin 10.9 g/dL (12.0-16.0); Immature Granulocytes Auto 0.03 Thou/mm3 (0.00-0.00); Lymphocytes # (Auto) 1.3 Thou/mm3 (1.0-4.8); Lymphocytes % (Auto) 18 % (10-50); Mean Corpuscular HGB Conc 32.3 g/dl (31.0-37.0); Mean Corpuscular Hemoglobin 24.2 pg (25.0-35.0); Mean Corpuscular Volume 75 fL (80-100); Monocytes # (Auto) 0.5 Thou/mm3 (0.0-0.8); Monocytes % (Auto) 6 % (0-12); Neutrophils # (Auto) 5.3 Thou/mm3 (1.8-7.7); Neutrophils % (Auto) 74 % (37-80); Nucleated Red Blood Cell # 0.00 Thou/mm3 (0.00-0.00); Nucleated Red Blood Cell % 0 /100 WBC (0); Platelet Count 283 Thou/mm3 (140-440); RDW Standard Deviation 44.5 fL (36.4-46.3); Red Blood Count 4.51 Miln/mm3 (4.00-5.20); White Blood Count 7.1 Thou/mm3 (3.6-11.0)
[2025-03-18 11:17] LABS: HCG,Qualitative Serum Negative
[2025-03-18 11:24] LABS: INR 1.0 (0.9-1.3); Prothrombin Time 11.1 Seconds (9.0-12.2)
[2025-03-18 11:27] LABS: Alanine Aminotransferase 58 U/L (10-49); Albumin, Serum 4.6 gm/dL (3.5-5.0); Albumin/Globulin Ratio 1.5 (1.2-2.2); Alkaline Phosphatase 90 U/L (46-116); Anion Gap 9 (7-16); Aspartate Amino Transferase 43 U/L (0-34); BUN/Creatinine Ratio 7 Ratio (12-20); Bilirubin,Total 0.2 mg/dL (0.3-1.2); Blood Urea Nitrogen 6 mg/dL (9-23); Calcium 9.6 mg/dL (8.3-10.6); Calcium (Corrected) 9.6 mg/dL (8.5-10.1); Carbon Dioxide 27.4 mMol/L (20.0-31.0); Chloride 106 mMol/L (98-107); Creatinine (Component) 0.9 mg/dL (0.6-1.3); Estimated Creatinine Clearance 63.7 mL/min (>60); Globulin 3.1 gm/dL (2.3-3.5); Glucose 105 mg/dL (74-106); Osmolality,Calculated 280 (275-295); Potassium 4.5 mMol/L (3.4-5.1); Sodium 142 mMol/L (136-145); Total Protein 7.7 gm/dL (5.7-8.2); eGFR > 60 See Note
--- NOTE | 2025-03-18 11:30 | XR_ITS ---
Examination: Abdomen AP single view Technique: AP portable supine abdomen, single view Exam date and time: March 18, 2025 1138 hours INDICATIONS: Abdominal constipation and pain today. FINDINGS: Moderate air and stool throughout the colon No obstruction No free air No abnormal calcific densities IMPRESSION: Moderate air and stool throughout the colon
[2025-03-18 13:38] VITALS: BP 122/89; PULSE 81; RESP 14; TEMP 36.6; O2SAT 100
== END 2025-03-18 13:42 | disposition home or self-care (01) ==
PROVIDERS: Emergency Provider Emergency Medicine
DX: R53.1 Weakness (principal); K59.00 Constipation, unspecified; A15.9 Respiratory tuberculosis unspecified; E11.9 Type 2 diabetes mellitus without complications
CPT/HCPCS: 36415; 74018; 80053; 81001; 84703; 85025; 85610; 87400; 87811; 99283

== ENCOUNTER 2025-06-01 07:00 | Emergency (ER) | payer MEDICAID, SELFPAY ==
[2025-06-01 07:11] VITALS: BP 138/83; PULSE 85; RESP 19; TEMP 37.3; O2SAT 100
--- NOTE | 2025-06-01 07:15 | EDNOTE_ITS ---
ED SOB =RME/HPI General Chief Complaint: Shortness of Breath/Dyspnea Stated Complaint: SOB, BACK PAIN RADIATES TO ABD Time Seen by Provider: 06/01/25 07:14 Arrival date/time: 06/01/25 07:00 Related Data Home Medications ?Medication ?Instructions ?Recorded ?Confirmed vits no.124-ferrous fum 1 tab PO QDAY 4 11/17/23 27 mg iron-folic acid 800 mcg tablet ( Vitamin) ondansetron 4 mg disintegrating 4 mg PO Q8H PRN Nausea And Vomiting 11/17/23 11/17/23 tablet Previous Rx's ?Medication ?Instructions ?Recorded blood sugar diagnostic (Blood #100 ea 11/19/23 Glucose Test strips) blood-glucose meter #1 ea 11/19/23 labetalol 200 mg tablet 200 mg PO BID 30 days #60 ta bs 11/19/23 lancets #200 ea 11/19/23 acetaminophen 300 mg-codeine 30 mg 2 tab PO Q8H PRN pa in #20 tabs 12/30/24 tablet acetaminophen 300 mg-codeine 30 mg 1 tab PO Q8H PRN pa in #20 tabs 01/19/25 tablet ondansetron 4 mg disintegrating 4 mg PO Q6H PRN nausea and 02/04/25 tablet vomiting #10 tabs prochlorperazine maleate 5 mg 5 mg PO TID PRN nausea a nd 02/04/25 tablet (Compazine) vomiting #14 tabs cefuroxime axetil 500 mg tablet 500 mg PO BID #14 tabs 03/01/25 famotidine 20 mg tablet (Pepcid) 20 mg PO BID #14 tabs 03/01/25 metoclopramide HCl 10 mg tablet 10 mg PO Q6H PRN nause a and 03/01/25 (Reglan) vomiting #20 tabs pyridoxine (vitamin B6) 50 mg 50 mg PO QDAY vitamin us e #90 tabs 03/14/25 tablet ciprofloxacin HCl 500 mg tablet 500 mg PO BID #14 tabs 03/16/25 (Cipro) famotidine 40 mg tablet (Pepcid) 40 mg PO BID #30 tabs 03/16/25 bisacodyl 10 mg rectal suppository 10 mg CA QDAY PRN c onstipation #3 03/18/25 (Dulcolax (bisacodyl)) ea polyethylene glycol 3350 17 gram 17 g PO QDAY #14 ea 0 03/18/25 oral powder packet (Miralax) acetaminophen 300 mg-codeine 30 mg 2 tab PO Q8H PRN pa in #10 tabs 06/01/25 tablet cefdinir 300 mg capsule 300 mg PO BID 5 days #10 cap s 06/01/25 Allergies Allergy/AdvReac Type Severity Reaction Status Date / Time No Known Allergies Allergy Verified 06/01/25 07:02 Course Quality Measures none Orders Category Date Time Status EKG (ED ONLY) *Do not use* NOW Care 06/01/25 07:17 Completed Saline [Insert IV] NOW Care 06/01/25 07:16 Completed EKG (ED Only) Stat Exams 06/01/25 07:17 Draft XR chest 1V portable Stat Exams 06/01/25 07:17 Completed BMP [Basic Metabolic Panel] Stat Lab 06/01/25 08:04 Completed BNP [B-Type Natriuretic Peptide] Stat Lab 06/01/25 08:04 Completed CBC Stat Lab 06/01/25 08:04 Completed COVID-19 Antigen (In-House) Stat Lab 06/01/25 07:49 Completed D-Dimer Stat Lab 06/01/25 08:04 Completed HCG,Qualitative Serum Stat Lab 06/01/25 08:04 Completed Influenza A & B Rapid Panel Stat Lab 06/01/25 07:49 Completed Magnesium Stat Lab 06/01/25 08:04 Completed TSH [Thyroid Stimulating Hormone] Stat Lab 06/01/25 08:04 Completed Troponin I Stat Lab 06/01/25 08:04 Completed UA, C/S IF [Urinalysis, C/S if Indicated] Stat Lab 06/01/25 07:47 Completed Urine Culture Stat Lab 06/01/25 07:47 Received Albuterol/Ipratr Rt Anna [Duoneb Rt Anna] Med 06/01/25 07:16 Discontinued 3 ml INH X1 ONE MethylPREDNISolone.* [SoluMEDROL Inj] Med 06/01/25 07:16 Discontinued 125 mg IVP X1 ONE cefTRIAXone/D5w 1gm IV premix [Rocephin/D5w 1gm IV Med 06/01/25 08:33 Discontinued premix] 1 gm in 50 ml IV X1 Vital Signs Vital signs: Vital Signs Temperature 99.1 F 06/01/25 07:11 Pulse Rate 85 06/01/25 07:11 Respiratory Rate 19 06/01/25 07:11 Blood Pressure 138/83 H 06/01/25 07:11 Pulse Oximetry (%) 100 06/01/25 07:11 Oxygen Delivery Method Room Air 06/01/25 07:11 Shortness of Breath / Dyspnea MDM Narrative MDM Narrative:: This section includes all my notes and documentations, including HPI, PE, and ED course. Coleman Sparks MD HPI: 45-year-old female here to be evaluated with shortness of breath since last night. No cough or congestion. No fever or chills. No chest pain. No other complaints. ROS: All negative except as documented in HPI. Physical Exam: General: Alert and oriented. No acute distress when remaining still. Eyes: Conjunctivae and lids clear. ENT: No nasal congestion. Pharynx normal. TM normal bilaterally. Neck: Supple. Heart: RRR. Lungs: No respiratory distress. Good air movement. No rhonchi, wheezing, rales. Abdomen: Soft and nontender. Normal bowel sounds. No distension. No rebound or guarding. Back: No CVA tenderness. Skin: Warm and dry. Neuro: Alert and oriented X 3. I reviewed all diagnostic test results: My interpretation of the EKG is: Sinus rhythm (79 bpm) with nonspecific ST-T changes. My interpretation of the chest x-ray is NAD. Blood tests unremarkable, including negative troponin/D-dimer/BNP. UA showed leukocyte esterase and 19 WBC. Covid/Influenza negative. At this point, diagnoses include: Shortness of breath with unclear etiology UTI Treatment here included: DuoNeb Solu-Medrol 125 mg IV Rocephin 1 g IV Patient remained stable. Recommended more outpatient workup. Based on my best medical judgment, made decision no further evaluation or treatment indicated at this time. Patient understands and agrees to the discharge instructions customized and printed, see below. Discharge instructions from Dr. Sparks: 1. After extensive evaluation, exact cause of your shortness of breath was not determined. But there is no life-threatening condition. Such as heart attack or pulmonary embolism (blood clots in your lungs) or pneumothorax (collapsed lung). 2. For your upper back pain, take ibuprofen and Tylenol with codeine as needed. 3. For urine infection, take cefdinir as prescribed. For good hydration, increase oral fluid and maintain clear urine. If dark or yellow, increase oral fluid. 4. See a private doctor on 06/03/2025 for recheck and further care. To make sure there is no serious underlying heart condition, ask to help you get more tests for your heart that cannot be done here in the ER. Such as Holter Monitor (cardiac monitoring at home from a day to even a month), heart stress test (on treadmill or with medication), echocardiogram (imaging of your heart structures), heart catherization (checking for blockages in your heart arteries), and a referral to see a It Help Desk Manager. To make sure there is no serious underlying lung condition, ask for referral to see lung specialist. Ask to review all test results and official radiology reports, to make sure you receive all necessary follow-ups and monitoring, including final urine culture results from today. 5. Seek immediate medical care with worsening or with any concerns. Instrucciones de angely del Dr. Sparks: 1. Tras harmeet evaluaci?n exhaustiva, no se determin? la causa exacta de price dificultad para respirar. Sin embargo, no presenta ninguna afecci?n que ponga en peligro price rayne, skylar un ataque card?aco, harmeet embolia pulmonar (co?gulos de yaakov en los pulmones) o un neumot?rax (colapso pulmonar). 2. Para el dolor en la parte superior de la espalda, tome ibuprofeno y Tylenol con code?na seg?n sea necesario. 3. Para la infecci?n urinaria, tome cefdinir seg?n lo recetado. Para harmeet buena hidrataci?n, aumente la ingesta de l?quidos y mantenga la orina virgie. Si la orina est? oscura o amarilla, aumente la ingesta de l?quidos. 4. Consulte con un m?dico privado el 06/03/2025 para harmeet revisi?n y seguimiento. Para descartar cualquier afecci?n card?ghada subyacente grave, solicite que le realicen pruebas card?acas adicionales que no se pueden realizar aqu? en la tanja de urgencias. Estas pruebas incluyen: monitor Holter (monitorizaci?n card?ghada ambulatoria panda un d?a o incluso un mes), prueba de esfuerzo card?aco (en cinta rodante o con medicaci?n), ecocardiograma (imagen de las estructuras del coraz?n), cateterismo card?aco (para detectar obstrucciones en las arterias coronarias) y harmeet derivaci?n a un cardi?logo. Para descartar cualquier afecci?n pulmonar subyacente grave, solicite harmeet derivaci?n a un neum?logo. Solicite revisar todos los resultados de las pruebas e informes radiol?gicos oficiales para asegurarse de recibir todo el seguimiento y la monitorizaci?n necesarios, incluidos los resultados finales del urocultivo de hoy. 5. Busque atenci?n m?dica inmediata si galindo s?ntomas empeoran o si tiene alguna otra inquietud. Coleman Sparks MD Patient data External records reviewed:: [facility] previous records Clinical information provided by:: patient and family Social determinants that could affect healthcare access:: none Patient has the following chronic illnesses:: Hypertension How is presenting disease/condition affected by chronic disease/condition?: uneffected by Evaluation data The following diagnostics were reviewed and interpreted by me:: lab results, radiology exam(s) and EKG tracing(s) (My interpretation of the EKG is: Sinus rhythm (79 bpm) with nonspecific ST-T changes. Coleman Sparks MD) Lab and/or radiology exams considered but not ordered:: None Interpretation Summary: I reviewed all diagnostic test results: My interpretation of the EKG is: Sinus rhythm (79 bpm) with nonspecific ST-T changes. My interpretation of the chest x-ray is NAD. Blood tests unremarkable, including negative troponin/D-dimer/BNP. UA showed leukocyte esterase and 19 WBC. Covid/Influenza negative. Medications / Prescriptions Medications or Prescriptions considered but not ordered:: None Medication administrations:: Medication Administration History Discontinued Medications Albuterol/Ipratropium (Albuterol/Ipratropium (Duoneb) Rt Anna 3 Ml Nebu) 3 ml INH X1 ONE Stop: 06/01/25 07:17 Last Admin: 06/01/25 08:31 Dose: 3 ml Documented By: KUSHAL Ceftriaxone Sodium/Dextrose (Rocephin/D5w 1gm Iv Premix) 1 gm in 50 mls @ 100 mls/hr IV X1 ONE Stop: 06/01/25 09:02 Last Infusion: 06/01/25 09:51 Dose: Infused Documented By: Admin: 06/01/25 08:54 Dose: 100 mls/hr Documented By: Methylprednisolone Sodium Succinate (Methylprednisolone Sod Succ 62.5 Mg/Ml 2ml Vial) 125 mg IVP X1 ONE Stop: 06/01/25 07:17 Last Admin: 06/01/25 08:09 Dose: 125 mg Documented By: TRUONG Treatment here included: DuoNeb Solu-Medrol 125 mg IV Rocephin 1 g IV Consultations Consultation(s) initiated? (list below): No Diagnosis Shortness of Breath Differential Diagnosis: acute exacerbation of chronic obstructive airways disease, congestive heart failure, community acquired pneumonia, asthma with exacerbation and pulmonary embolism Most likely diagnosis given after review of the tests above:: At this point, diagnoses include: Shortness of breath with unclear etiology UTI Admission Indicated Admission indicated?: not indicated Explain why admission is indicated or not indicated:: With no condition needing emergent intervention, there was no indication for admission. Admission Request Was there a request for admission?: No Disposition Plan Disposition Plan: Discharge Discharge Attestation Discharge Attestation: The patient and all family members were given an opportunity to ask questions and understood the discharge instructions. Discharge instructions specifically effects, indications for sooner follow up or return to the emergency department, and the expected course of current diagnosis. Patient condition: Stable Discharge Plan Plan Patient Disposition: HOME (Self Care) Prescriptions/Referrals Prescriptions/Med Rec: New acetaminophen-codeine 300-30 mg tablet 2 tab PO Q8H MDD 6 PRN (Reason: pain) Qty: 10 0RF cefdinir 300 mg capsule 300 mg PO BID 5 Days Qty: 10 0RF No Action ondansetron 4 mg tablet,disintegrating 4 mg PO Q8H PRN (Reason: Nausea And Vomiting) labetalol 200 mg tablet 200 mg PO BID 30 Days Qty: 60 2RF (DME) blood-glucose meter Kit See Rx Instructions .Route Qty: 1 0RF Rx Instructions: As directed, four times a day (fasting, 1hr after BF, 1hr after lunch, 1hr after dinner) (DME) lancets Misc See Rx Instructions .Route Qty: 200 0RF Rx Instructions: As directed (DME) Blood Glucose Test Strip See Rx Instructions .Route Qty: 100 0RF Rx Instructions: As directed Vitamin 27 mg iron- 800 mcg Tablet 1 tab PO QDAY acetaminophen-codeine 300-30 mg tablet 2 tab PO Q8H MDD 6 PRN (Reason: pain) Qty: 20 0RF acetaminophen-codeine 300-30 mg tablet 1 tab PO Q8H PRN (Reason: pain) Qty: 20 0RF ondansetron 4 mg tablet,disintegrating 4 mg PO Q6H PRN (Reason: nausea and vomiting) Qty: 10 0RF prochlorperazine maleate [Compazine] 5 mg tablet 5 mg PO TID PRN (Reason: nausea and vomiting) Qty: 14 0RF metoclopramide HCl [Reglan] 10 mg tablet 10 mg PO Q6H PRN (Reason: nausea and vomiting) Qty: 20 0RF famotidine [Pepcid] 20 mg tablet 20 mg PO BID Qty: 14 0RF cefuroxime axetil 500 mg tablet 500 mg PO BID Qty: 14 0RF pyridoxine (vitamin B6) 50 mg tablet 50 mg PO QDAY MDD 1 Qty: 90 0RF ciprofloxacin HCl [Cipro] 500 mg tablet 500 mg PO BID Qty: 14 0RF famotidine [Pepcid] 40 mg tablet 40 mg PO BID Qty: 30 0RF bisacodyl [Dulcolax (bisacodyl)] 10 mg suppository 10 mg CA QDAY MDD 10mg PRN (Reason: constipation) Qty: 3 0RF polyethylene glycol 3350 [Miralax] 17 gram powder in packet 17 g PO QDAY Qty: 14 0RF Problem List Clinical Impression: Shortness of breath, UTI (urinary tract infection) Patient/Caregiver Discharge Instructions Discharge Activity: activity as tolerated Education Materials: ED Back Pain (Acute or Chronic), ED Shortness of Breath (Dyspnea), ED CYSTITIS Female Adult Additional Instructions: Discharge instructions from Dr. Sparks: 1. After extensive evaluation, exact cause of your shortness of breath was not determined. But there is no life-threatening condition. Such as heart attack or pulmonary embolism (blood clots in your lungs) or pneumothorax (collapsed lung). 2. For your upper back pain, take ibuprofen and Tylenol with codeine as needed. 3. For urine infection, take cefdinir as prescribed. For good hydration, increase oral fluid and maintain clear urine. If dark or yellow, increase oral fluid. 4. See a private doctor on 06/03/2025 for recheck and further care. To make sure there is no serious underlying heart condition, ask to help you get more tests for your heart that cannot be done here in the ER. Such as Holter Monitor (cardiac monitoring at home from a day to even a month), heart stress test (on treadmill or with medication), echocardiogram (imaging of your heart structures), heart catherization (checking for blockages in your heart arteries), and a referral to see a It Help Desk Manager. To make sure there is no serious underlying lung condition, ask for referral to see lung specialist. Ask to review all test results and official radiology reports, to make sure you receive all necessary follow-ups and monitoring, including final urine culture results from today. 5. Seek immediate medical care with worsening or with any concerns. Instrucciones de angely del Dr. Sparks: 1. Tras harmeet evaluaci?n exhaustiva, no se determin? la causa exacta de price dificultad para respirar. Sin embargo, no presenta ninguna afecci?n que ponga en peligro price rayne, skylar un ataque card?aco, harmeet embolia pulmonar (co?gulos de yaakov en los pulmones) o un neumot?rax (colapso pulmonar). 2. Para el dolor en la parte superior de la espalda, tome ibuprofeno y Tylenol con code?na seg?n sea necesario. 3. Para la infecci?n urinaria, tome cefdinir seg?n lo recetado. Para harmeet buena hidrataci?n, aumente la ingesta de l?quidos y mantenga la orina virgie. Si la orina est? oscura o amarilla, aumente la ingesta de l?quidos. 4. Consulte con un m?dico privado el 06/03/2025 para harmeet revisi?n y seguimiento. Para descartar cualquier afecci?n card?ghada subyacente grave, solicite que le realicen pruebas card?acas adicionales que no se pueden realizar aqu? en la tanja de urgencias. Estas pruebas incluyen: monitor Holter (monitorizaci?n card?ghada ambulatoria panda un d?a o incluso un mes), prueba de esfuerzo card?aco (en cinta rodante o con medicaci?n), ecocardiograma (imagen de las estructuras del coraz?n), cateterismo card?aco (para detectar obstrucciones en las arterias coronarias) y harmeet derivaci?n a un cardi?logo. Para descartar cualquier afecci?n pulmonar subyacente grave, solicite harmeet derivaci?n a un neum?logo. Solicite revisar todos los resultados de las pruebas e informes radiol?gicos oficiales para asegurarse de recibir todo el seguimiento y la monitorizaci?n necesarios, incluidos los resultados finales del urocultivo de hoy. 5. Busque atenci?n m?dica inmediata si galindo s?ntomas empeoran o si tiene alguna otra inquietud. Print Language: Argentine Stand Alone Forms: [employer]el[employer] Award Info., Patient Portal Info Letter
--- NOTE | 2025-06-01 07:17 | EKG_ITS ---
[facility] Test Date: 2025-06-01 Pat Name: LIDIA BURNS Department: Room: - Gender: Female [employer]: : [id number] Requested By: Coleman De La Cruz Order Number: [id number] Reading MD: Coleman De La Cruz Measurements Intervals Halliday Rate: 79 P: 68 CA: 143 QRS: 45 QRSD: 83 T: 27 QT: 369 QTc: 425 Interpretive Statements SINUS RHYTHM NONSPECIFIC T-WAVE ABNORMALITY Compared to ECG 03/14/2025 17:07:17 T-wave abnormality now present /store/S0/[id number].pdf
--- NOTE | 2025-06-01 07:17 | XR_ITS ---
EXAMINATION: PA lateral chest 2 views Technique when upright PA lateral chest 2 views Date and time: June 01, 2025, 0726 hours INDICATIONS: Shortness of breath chest pain today. FINDINGS: Normal heart size Lungs are clear. Osseous structures are intact. IMPRESSION: No active disease
[2025-06-01 07:52] LABS: Collection Type, Urine Clean Catch
--- NOTE | 2025-06-01 08:00 | PC.NURSE ---
In to assess pt. Pt from home with c/o SOB and lower back pain x1 day. Pt without further complaints at this time. Orders received and initiated, call light placed within reach. Family member at bedside. Plan of care ongoing.
[2025-06-01] MEDS: MethylPREDNISolone SOD SUCC 62.5 MG/ML 2ML VIAL 125 MG IVP (08:09)
--- NOTE | 2025-06-01 08:10 | PC.NURSE ---
RT called for ordered breathing treatment.
[2025-06-01 08:23] LABS: Bilirubin,Urine Negative (Negative); Blood,Urine Negative (Negative); Clarity,Urine Clear (Clear/Hazy); Color,Urine Colorless (Lt Yel-Yel); Glucose, Urine Negative (Negative); Ketones,Urine Negative (Negative); Leukocyte Esterase,Urine Positive (Negative); Nitrite,Urine Negative (Negative); PH,Urine 6.5 (5.0-7.0); Protein,Urine Negative (Neg - Trace); RBC,Urine 3 /hpf (0-3); Specific Gravity,Urine 1.006 (1.001-1.035); Squamous Epithelial Cell,Urine 7 /hpf (0-5); Urobilinogen,Urine Negative mg/dL (0.0-1.0); WBC,Urine 19 /hpf (0-5)
[2025-06-01 08:31] LABS: Culture Indicated,Urine Yes
[2025-06-01] MEDS: ALBUTEROL/IPRATROPIUM (Duoneb) RT SOL 3 ML NEBU INH (08:31)
[2025-06-01 08:34] VITALS: PULSE 80; RESP 20; O2SAT 99
[2025-06-01 08:34] LABS: Basophils # (Auto) 0.0 Thou/mm3 (0.0-0.2); Basophils % (Auto) 0 % (0-2.5); Eosinophils # (Auto) 0.1 Thou/mm3 (0.0-0.5); Eosinophils % (Auto) 1 % (0-10); Hematocrit 35.3 % (36.0-46.0); Hemoglobin 10.8 g/dL (12.0-16.0); Immature Granulocytes Auto 0.02 Thou/mm3 (0.00-0.00); Lymphocytes # (Auto) 1.3 Thou/mm3 (1.0-4.8); Lymphocytes % (Auto) 18 % (10-50); Mean Corpuscular HGB Conc 30.6 g/dl (31.0-37.0); Mean Corpuscular Hemoglobin 22.2 pg (25.0-35.0); Mean Corpuscular Volume 73 fL (80-100); Monocytes # (Auto) 0.3 Thou/mm3 (0.0-0.8); Monocytes % (Auto) 4 % (0-12); Neutrophils # (Auto) 5.4 Thou/mm3 (1.8-7.7); Neutrophils % (Auto) 76 % (37-80); Nucleated Red Blood Cell # 0.00 Thou/mm3 (0.00-0.00); Nucleated Red Blood Cell % 0 /100 WBC (0); Platelet Count 403 Thou/mm3 (140-440); RDW Standard Deviation 43.7 fL (36.4-46.3); Red Blood Count 4.87 Miln/mm3 (4.00-5.20); White Blood Count 7.1 Thou/mm3 (3.6-11.0)
--- NOTE | 2025-06-01 08:41 | PC.RT ---
Patient declined ABG at this time, Daughter bedside. no distress is noted.
[2025-06-01] MEDS: cefTRIAXone/D5w 1gm IV premix 1 GM/50 ML BAG IV (08:54)
[2025-06-01 09:07] LABS: HCG,Qualitative Serum Negative
[2025-06-01 09:17] LABS: B-Type Natriuretic Peptide < 20 pg/mL (0-100)
[2025-06-01 09:18] LABS: D-Dimer 496 ng/mL (<600)
[2025-06-01 09:20] LABS: Anion Gap 10 (7-16); BUN/Creatinine Ratio 9 Ratio (12-20); Blood Urea Nitrogen 8 mg/dL (9-23); Calcium 9.3 mg/dL (8.3-10.6); Carbon Dioxide 27.1 mMol/L (20.0-31.0); Chloride 105 mMol/L (98-107); Creatinine (Component) 0.9 mg/dL (0.6-1.3); Glucose 113 mg/dL (74-106); Magnesium 2.0 mg/dL (1.6-2.6); Osmolality,Calculated 282 (275-295); Potassium 4.0 mMol/L (3.4-5.1); Sodium 142 mMol/L (136-145); Thyroid Stimulating Hormone 4.13 uIU/mL (0.55-4.78); Troponin I < 0.020 ng/mL (0.0-0.045); eGFR > 60 See Note
[2025-06-01 09:23] LABS: COVID-19 Antigen (In-House) Negative (Negative); Influenza A Ag Negative; Influenza B Ag Negative
[2025-06-01 09:52] VITALS: BP 124/81; PULSE 75; RESP 18; TEMP 37.2; O2SAT 100
== END 2025-06-01 09:54 | disposition home or self-care (01) ==
PROVIDERS: Emergency Provider Emergency Medicine; PCP Family Medicine
DX: N39.0 Urinary tract infection, site not specified (principal); R06.02 Shortness of breath; R07.9 Chest pain, unspecified; R94.31 Abnormal electrocardiogram [ECG] [EKG]
CPT/HCPCS: 36415; 36600; 71045; 80048; 81001; 82803; 83735; 83880; 84443; 84484; 84703; 85025; 85379; 87086; 87502; 87811; 93005; 94640; 96365; 96375; 99284; A9270; J0696; J2919

== ENCOUNTER 2025-06-06 19:51 | Emergency (ER) | payer MEDICAID, SELFPAY ==
--- NOTE | 2025-06-06 20:14 | PD.EDSOB ---
ED SOB =RME/HPI General Chief Complaint: Shortness of Breath/Dyspnea Stated Complaint: SHORT OF BREATH, SHAKING Time Seen by Provider: 06/06/25 20:51 Arrival date/time: 06/06/25 19:51 RME / HPI RME / HPI Narrative: See MDM for Dr. Sparks's HPI documentation. Related Data Home Medications ?Medication ?Instructions ?Recorded ?Confirmed vits no.[id number]-[id number] fum 1 tab PO QDAY 10/21/23 11/17/23 27 mg iron-folic acid 800 mcg tablet ( Vitamin) ondansetron 4 mg disintegrating 4 mg PO Q8H PRN Nausea And Vomiting 11/17/23 11/17/23 tablet Previous Rx's ?Medication ?Instructions ?Recorded blood sugar diagnostic (Blood #100 ea 11/19/23 Glucose Test strips) blood-glucose meter #1 ea 11/19/23 labetalol 200 mg tablet 200 mg PO BID 30 days #60 tabs 11/19/23 lancets #200 ea 11/19/23 acetaminophen 300 mg-codeine 30 mg 2 tab PO Q8H PRN pain #20 tabs 12/30/24 tablet acetaminophen 300 mg-codeine 30 mg 1 tab PO Q8H PRN pain #20 tabs 01/19/25 tablet ondansetron 4 mg disintegrating 4 mg PO Q6H PRN nausea and 02/04/25 tablet vomiting #10 tabs prochlorperazine maleate 5 mg 5 mg PO TID PRN nausea and 02/04/25 tablet (Compazine) vomiting #14 tabs cefuroxime axetil 500 mg tablet 500 mg PO BID #14 tabs 03/01/25 famotidine 20 mg tablet (Pepcid) 20 mg PO BID #14 tabs 03/01/25 metoclopramide HCl 10 mg tablet 10 mg PO Q6H PRN nausea and 03/01/25 (Reglan) vomiting #20 tabs pyridoxine (vitamin B6) 50 mg 50 mg PO QDAY vitamin use #90 tabs 03/14/25 tablet ciprofloxacin HCl 500 mg tablet 500 mg PO BID #14 tabs 03/16/25 (Cipro) famotidine 40 mg tablet (Pepcid) 40 mg PO BID #30 tabs 03/16/25 bisacodyl 10 mg rectal suppository 10 mg CO QDAY PRN constipation #3 03/18/25 (Dulcolax (bisacodyl)) ea polyethylene glycol 3350 17 gram 17 g PO QDAY #14 ea 03/18/25 oral powder packet (Miralax) acetaminophen 300 mg-codeine 30 mg 2 tab PO Q8H PRN pain #10 tabs 06/01/25 tablet alprazolam 0.5 mg tablet (Xanax) 0.5 mg PO BID PRN anxiety #20 tabs 06/06/25 Allergies Allergy/AdvReac Type Severity Reaction Status Date / Time No Known Allergies Allergy Verified 06/01/25 07:02 Review of Systems Review of Systems Systems Reviewed: All systems reviewed, normal except as documented ED Exam Narrative Physical exam: See MDM for Dr. Sparks's physical exam documentation. Course Course Course Narrative: CXR is ordered for determining the etiology of shortness of breath. Quality Measures none Orders Category Date Time Status EKG (ED ONLY) *Do not use* NOW Care 06/06/25 20:[address] chest abdomen pelvis wo Stat Exams 06/06/25 20:[address] head/brain wo con Stat Exams 06/06/25 20:23 Completed EKG (ED Only) Stat Exams 06/06/25 20:23 Draft XR chest 1V portable Stat Exams 06/06/25 20:23 Completed Beta Hydroxybutyrate Stat Lab 06/06/25 20:45 Completed Bilirubin,Direct Stat Lab 06/06/25 20:45 Completed CBC Stat Lab 06/06/25 20:45 Completed CMP [Comprehensive Metabolic Panel] Stat Lab 06/06/25 20:45 Completed CRP [C-Reactive Protein] Stat Lab 06/06/25 20:45 Completed ESR [Sed Rate (ESR)] Stat Lab 06/06/25 20:45 Completed HCG,Qualitative Serum Stat Lab 06/06/25 20:45 Completed Hemoglobin A1C [Glycohemoglobin w (eAG)] Stat Lab 06/06/25 20:45 Completed Magnesium Stat Lab 06/06/25 20:45 Completed Procalcitonin Stat Lab 06/06/25 20:45 Completed Troponin I Stat Lab 06/06/25 20:45 Completed VBG [Venous Blood Gas] Stat Lab 06/06/25 20:45 Completed ALPRazoLAM [Xanax] Med 06/06/25 20:21 Discontinued 0.75 mg PO X1 ONE Ondansetron Odt [Zofran Odt] Med 06/06/25 20:21 Discontinued 4 mg PO X1 ONE Vital Signs Vital signs: Vital Signs Temperature 97.6 F 06/06/25 20:41 Pulse Rate 72 06/06/25 20:41 Respiratory Rate 18 06/06/25 20:41 Blood Pressure 127/85 H 06/06/25 20:41 Pulse Oximetry (%) 98 06/06/25 20:41 Oxygen Delivery Method Room Air 06/06/25 20:41 Shortness of Breath / Dyspnea MDM Narrative MDM Narrative:: This section includes all my notes and documentations, including HPI, PE, and ED course. Coleman Sparks MD HPI: 45-year-old female here with multiple concerns. Reports being under tremendous amount of stress. She was fine yesterday and today in the morning. Then she developed episodes of different symptoms which can include intense fear, pounding and racing heart, sweating, chills, shaking, trouble breathing, chest pain, stomach pain, nausea, numbness and tingling in the hands and feet and face, confusion, hot flashes, and feeling faint. No other complaints. ROS: All negative except as documented in HPI. Physical Exam: General:? Alert and oriented.? Appears severely anxious. Eyes:? Conjunctivae and lids clear.? EOMI.? PERRL. ENT:? No nasal congestion.? Neck:? Supple.? No carotid bruit.? No JVD.?? Heart:? RRR.? Lungs:? No respiratory distress.? Good air movement.? No rhonchi, wheezing, rales.?? Chest:? No tenderness. Abdomen:? Soft and nontender.? Normal bowel sounds.? No distension.? No rebound or guarding.?? Back:? No CVA tenderness.?? Legs:? No clubbing, cyanosis, edema.? Skin:? Warm and dry.?? Neuro:? Alert and oriented X 3.? Cranial Nerves II-XII grossly intact.? No peripheral motor deficits. I reviewed all diagnostic test results. My interpretation of the EKG is sinus rhythm with nonspecific ST-T changes. My interpretation of the chest x-ray is NAD. My review of the CT head report is NAD. My review of the CT chest abdomen pelvis report is: - 28 mm hypodense pelvic mass which may represent a cyst - L5-S1 4 mm central left paracentral disc bulge displacing the left S1 nerve root - L4-L5 3 mm central lumbar disc bulge Blood tests unremarkable. At this point, diagnoses include: Stress reaction Treatment here included: Xanax 0.75 mg PO Zofran ODT 4 mg PO Significant improvement noted. Recommended more outpatient care. Based on my best medical judgment, made decision no further evaluation or treatment indicated at this time. Patient understands and agrees to the discharge instructions customized and printed, see below. Discharge instructions from Dr. Sparks: 1. After extensive evaluation, there is no life-threatening condition. Such as stroke or brain tumor or heart attack or pulmonary embolism (blood clots in your lungs) or pneumothorax (collapsed lung). 2. Your symptoms may be due to underlying stress or anxiety or nerves. This is fairly common. See attached handout. 3. Take Xanax as needed. Whether this helps or not will be valuable information to your private doctors. 4. See a private doctor on 06/10/2025 for recheck and further care and second opinion. Ask to review all test results and official radiology reports, to make sure you receive all necessary follow-ups and monitoring, including final urine culture results from today and possible pelvic mass and disc bulging in the lower back. Ask for referral to see cullet crusher and washer for the possible pelvic mass. Ask for MRI of the back for disc bulging. To make sure there is no serious underlying heart condition, ask to help you get more tests for your heart that cannot be done here in the ER. Such as Holter Monitor (cardiac monitoring at home from a day to even a month), heart stress test (on treadmill or with medication), echocardiogram (imaging of your heart structures), heart catherization (checking for blockages in your heart arteries), and a referral to see a Psychiatry Resident. Ask for MRI of the brain and referral to see neurologist. 5. Seek immediate medical care with worsening or with any concerns. Coleman Sparks MD Patient data External records reviewed:: [facility] previous records (Per chart review, patient was seen here on 06/01/25 for shortness of breath.) Clinical information provided by:: patient Social determinants that could affect healthcare access:: none Patient has the following chronic illnesses:: HTN How is presenting disease/condition affected by chronic disease/condition?: uneffected by Evaluation data The following diagnostics were reviewed and interpreted by me:: lab results, radiology exam(s) and EKG tracing(s) (My interpretation of the EKG is: Sinus rhythm (73 bpm) with nonspecific ST-T changes. Coleman Sparks MD) Lab and/or radiology exams considered but not ordered:: none Interpretation Summary: I reviewed all diagnostic test results. My interpretation of the EKG is sinus rhythm with nonspecific ST-T changes. My interpretation of the chest x-ray is NAD. My review of the CT head report is NAD. My review of the CT chest abdomen pelvis report is: - 28 mm hypodense pelvic mass which may represent a cyst - L5-S1 4 mm central left paracentral disc bulge displacing the left S1 nerve root - L4-L5 3 mm central lumbar disc bulge Blood tests unremarkable. Medications / Prescriptions Medications or Prescriptions considered but not ordered:: none Medication administrations:: Medication Administration History Discontinued Medications Alprazolam (Alprazolam 0.25 Mg Tablet) 0.75 mg PO X1 ONE Stop: 06/06/25 20:22 Last Admin: 06/06/25 21:08 Dose: 0.75 mg Documented By: ARIEL Ondansetron HCl (Ondansetron Odt 4 Mg Tabrap) 4 mg PO X1 ONE; Protocol Stop: 06/06/25 20:22 Last Admin: 06/06/25 21:06 Dose: 4 mg Documented By: ARIEL Treatment here included: Xanax 0.75 mg PO Zofran ODT 4 mg PO Consultations Consultation(s) initiated? (list below): No Diagnosis Shortness of Breath Differential Diagnosis: congestive heart failure, community acquired pneumonia and pulmonary embolism Most likely diagnosis given after review of the tests above:: Stress reaction Admission Indicated Admission indicated?: not indicated Explain why admission is indicated or not indicated:: With significant improvement and no condition needing emergent intervention, there was no indication for admission. Admission Request Was there a request for admission?: No Disposition Plan Disposition Plan: Discharge Discharge Attestation Discharge Attestation: The patient and all family members were given an opportunity to ask questions and understood the discharge instructions. Discharge instructions specifically effects, indications for sooner follow up or return to the emergency department, and the expected course of current diagnosis. Patient condition: Stable Discharge Plan Plan Patient Disposition: HOME (Self Care) Prescriptions/Referrals Prescriptions/Med Rec: New alprazolam [Xanax] 0.5 mg tablet 0.5 mg PO BID PRN (Reason: anxiety) Qty: 20 0RF No Action ondansetron 4 mg tablet,disintegrating 4 mg PO Q8H PRN (Reason: Nausea And Vomiting) labetalol 200 mg tablet 200 mg PO BID 30 Days Qty: 60 2RF (DME) blood-glucose meter Kit See Rx Instructions .Route Qty: 1 0RF Rx Instructions: As directed, four times a day (fasting, 1hr after BF, 1hr after lunch, 1hr after dinner) (DME) lancets Misc See Rx Instructions .Route Qty: 200 0RF Rx Instructions: As directed (DME) Blood Glucose Test Strip See Rx Instructions .Route Qty: 100 0RF Rx Instructions: As directed acetaminophen-codeine 300-30 mg tablet 2 tab PO Q8H MDD 6 PRN (Reason: pain) Qty: 10 0RF Vitamin 27 mg iron- 800 mcg Tablet 1 tab PO QDAY acetaminophen-codeine 300-30 mg tablet 2 tab PO Q8H MDD 6 PRN (Reason: pain) Qty: 20 0RF acetaminophen-codeine 300-30 mg tablet 1 tab PO Q8H PRN (Reason: pain) Qty: 20 0RF ondansetron 4 mg tablet,disintegrating 4 mg PO Q6H PRN (Reason: nausea and vomiting) Qty: 10 0RF prochlorperazine maleate [Compazine] 5 mg tablet 5 mg PO TID PRN (Reason: nausea and vomiting) Qty: 14 0RF metoclopramide HCl [Reglan] 10 mg tablet 10 mg PO Q6H PRN (Reason: nausea and vomiting) Qty: 20 0RF famotidine [Pepcid] 20 mg tablet 20 mg PO BID Qty: 14 0RF cefuroxime axetil 500 mg tablet 500 mg PO BID Qty: 14 0RF pyridoxine (vitamin B6) 50 mg tablet 50 mg PO QDAY MDD 1 Qty: 90 0RF ciprofloxacin HCl [Cipro] 500 mg tablet 500 mg PO BID Qty: 14 0RF famotidine [Pepcid] 40 mg tablet 40 mg PO BID Qty: 30 0RF bisacodyl [Dulcolax (bisacodyl)] 10 mg suppository 10 mg CO QDAY MDD 10mg PRN (Reason: constipation) Qty: 3 0RF polyethylene glycol 3350 [Miralax] 17 gram powder in packet 17 g PO QDAY Qty: 14 0RF Problem List Clinical Impression: Stress reaction, UTI (urinary tract infection) Patient/Caregiver Discharge Instructions Discharge Activity: activity as tolerated Education Materials: ED Anxiety Reaction, ED Panic Attack, ED Tumor, Uncertain Cause, ED CYSTITIS Female Adult, ED Herniated Intervertebral Disk Additional Instructions: Instrucciones de angely del Dr. Sparks: 1. Tras harmeet evaluaci?n exhaustiva, no se detect? ninguna afecci?n que ponga en peligro price rayne, skylar un derrame cerebral, un tumor cerebral, un infarto de miocardio, harmeet embolia pulmonar (co?gulos de yaakov en los pulmones) o un neumot?rax (colapso pulmonar). 2. Galindo s?ntomas pueden deberse a estr?s, ansiedad o nerviosismo. [place] es bastante com?n. Consulte el folleto adjunto. 3. [place] Xanax seg?n sea necesario. La informaci?n sobre si le ayuda o no ser? valiosa para galindo m?dicos de cabecera. 4. Consulte con un m?dico privado el 10/06/2025 para harmeet revisi?n, atenci?n adicional y harmeet segunda opini?n. Solicite revisar todos los resultados de las pruebas e informes radiol?gicos oficiales para asegurarse de recibir todo el seguimiento y la monitorizaci?n necesarios, incluyendo los resultados finales del cultivo de orina de hoy y la posible masa p?lvica y la protrusi?n discal en la augustin lumbar. Solicite harmeet derivaci?n a un ginec?logo para la posible masa p?lvica. Solicite harmeet resonancia magn?denia de la espalda para la protrusi?n discal. Para descartar cualquier afecci?n card?ghada subyacente grave, solicite que le realicen m?s pruebas card?acas que no se pueden realizar aqu? en la tanja de urgencias. [place] un monitor Holter (monitorizaci?n card?ghada en casa panda un d?a o incluso un mes), harmeet prueba de esfuerzo card?aco (en cinta de correr o con medicaci?n), un ecocardiograma (imagen de las estructuras del coraz?n), un cateterismo card?aco (para detectar obstrucciones en las arterias coronarias) y harmeet derivaci?n a un cardi?logo. Solicite harmeet resonancia magn?denia del cerebro y harmeet derivaci?n a un neur?logo. 5. Busque atenci?n m?dica inmediata si los s?ntomas empeoran o si tiene alguna inquietud. Discharge instructions from Dr. Sparks: 1. After extensive evaluation, there is no life-threatening condition. Such as stroke or brain tumor or heart attack or pulmonary embolism (blood clots in your lungs) or pneumothorax (collapsed lung). 2. Your symptoms may be due to underlying stress or anxiety or nerves. This is fairly common. See attached handout. 3. Take Xanax as needed. Whether this helps or not will be valuable information to your private doctors. 4. See a private doctor on 06/10/2025 for recheck and further care and second opinion. Ask to review all test results and official radiology reports, to make sure you receive all necessary follow-ups and monitoring, including final urine culture results from today and possible pelvic mass and disc bulging in the lower back. Ask for referral to see cullet crusher and washer for the possible pelvic mass. Ask for MRI of the back for disc bulging. To make sure there is no serious underlying heart condition, ask to help you get more tests for your heart that cannot be done here in the ER. Such as Holter Monitor (cardiac monitoring at home from a day to even a month), heart stress test (on treadmill or with medication), echocardiogram (imaging of your heart structures), heart catherization (checking for blockages in your heart arteries), and a referral to see a Psychiatry Resident. Ask for MRI of the brain and referral to see neurologist. 5. Seek immediate medical care with worsening or with any concerns. Print Language: Slovak Stand Alone Forms: Estelita Award Info., Patient Portal Info Letter
--- NOTE | 2025-06-06 20:23 | EKG_ITS ---
[facility] Test Date: 2025-06-06 Pat Name: LIDIA BURNS Department: Room: - Gender: Female Awake Overnight Monitor: : 1980 Requested By: Coleman De La Cruz Order Number: [id number] Reading MD: Coleman De La Cruz Measurements Intervals [place] Rate: 73 P: 50 AR: 124 QRS: 40 QRSD: 94 T: 25 QT: 383 QTc: 423 Interpretive Statements SINUS RHYTHM NONSPECIFIC T-WAVE ABNORMALITY Compared to ECG 06/01/2025 07:21:11 No significant changes /store/S0/[id number]/[id number].pdf
--- NOTE | 2025-06-06 20:23 | XR_ITS ---
EXAMINATION: AP chest single view TECHNIQUE: Upright AP chest single view Date and time: June 06, 2025, 2052 hours INDICATIONS: Shortness of breath today. FINDINGS: Normal heart size Lungs are clear. Osseous structures are intact IMPRESSION: No active disease
--- NOTE | 2025-06-06 20:23 | XR_ITS ---
Examination: CT chest, without intravenous contrast. CT abdomen, without intravenous contrast. CT pelvis, without intravenous contrast. 2-D sagittal and coronal reconstructions. 3-D reconstructions. Date and time of exam: June 06, 2025, 2130 hours INDICATIONS: Chest pain shortness of breath abdominal pain today CTDI vol (mgy) 10.5 DLP (MGycm) 794 Technique: Multiple CT images, 3.0 mm slice thickness, obtained chest, abdomen, pelvis, with the high-resolution 64 slice scanner.. Sagittal and coronal 2-D reconstructions are obtained. 3-D reconstructions Low dose protocols were performed. One or more of the following dose reduction techniques were used; automated exposure control, adjustment of the mA and/or KV according to patient size, use of iterative reconstruction technique. Findings: No thoracic aortic aneurysm dilatation Pulmonary artery segments are not enlarged. No paratracheal tracheobronchial or bronchopulmonary adenopathy. No pneumonia, pulmonary edema or pleural disease No liver splenic or pancreatic mass lesion No gallstones Normal adrenal glands No renal or ureteral calculi, no hydronephrosis Aorta normal size No free fluid in the abdomen No bowel obstruction Normal appendix No diverticulitis Hypodense left pelvic mass, 28 mm which may represent a cyst Bladder intact No uterine mass Moderate disc narrowing L4-L5 L5-S1 4 mm central left paracentral disc bulge displacing the left S1 nerve root L4-L5 3 mm central lumbar disc bulge IMPRESSION: No thoracic or pulmonary arterial enlargement No mediastinal lymphadenopathy No pneumonia or pulmonary edema or pleural disease No renal or ureteral calculi, no hydronephrosis Normal appendix 28 mm hypodense pelvic mass which may represent a cyst, recommend pelvic sonography follow-up L5-S1 4 mm central left paracentral disc bulge displacing the left S1 nerve root L4-L5 3 mm central lumbar disc bulge
--- NOTE | 2025-06-06 20:23 | XR_ITS ---
Examination: CT brain head without contrast. 2-D sagittal coronal reconstructions Date and time of exam: June 06, 2025, 2127 hours INDICATIONS: Altered mental status today CTDI: vol (mGy): 47.4 DLP: (mGycm): 832 Technique: Multiple CT axial sections of the brain have been obtained, 5 mm slice thickness. Contrast has not been administered. 2-D sagittal, coronal reconstructions have been obtained Low dose protocols were performed. One or more of the following dose reduction techniques were used; automated exposure control, adjustment of the mA and/or KV according to patient size, use of iterative reconstruction technique. Findings: No significant ventricular enlargement. Intra-axial or extra-axial hemorrhage density is not seen. No mass effect or midline shift Basal cisterns are not remarkable. Fourth ventricle is midline. Cranial vault intact. Impression: Negative for acute hemorrhage, mass effect or midline shift Advise clinical correlation and follow-up accordingly
[2025-06-06 20:41] VITALS: BP 127/85; PULSE 72; RESP 18; TEMP 36.4; O2SAT 98
[2025-06-06] MEDS: ONDANSETRON ODT 4 MG TABRAP PO (21:06)
[2025-06-06 21:10] LABS: Basophils # (Auto) 0.0 Thou/mm3 (0.0-0.2); Basophils % (Auto) 0 % (0-2.5); Eosinophils # (Auto) 0.2 Thou/mm3 (0.0-0.5); Eosinophils % (Auto) 2 % (0-10); Hematocrit 29.1 % (36.0-46.0); Hemoglobin 9.3 g/dL (12.0-16.0); Immature Granulocytes Auto 0.04 Thou/mm3 (0.00-0.00); Lymphocytes # (Auto) 1.6 Thou/mm3 (1.0-4.8); Lymphocytes % (Auto) 15 % (10-50); Mean Corpuscular HGB Conc 32.0 g/dl (31.0-37.0); Mean Corpuscular Hemoglobin 22.9 pg (25.0-35.0); Mean Corpuscular Volume 72 fL (80-100); Monocytes # (Auto) 0.6 Thou/mm3 (0.0-0.8); Monocytes % (Auto) 5 % (0-12); Neutrophils # (Auto) 8.0 Thou/mm3 (1.8-7.7); Neutrophils % (Auto) 77 % (37-80); Nucleated Red Blood Cell # 0.00 Thou/mm3 (0.00-0.00); Nucleated Red Blood Cell % 0 /100 WBC (0); Platelet Count 314 Thou/mm3 (140-440); RDW Standard Deviation 43.9 fL (36.4-46.3); Red Blood Count 4.07 Miln/mm3 (4.00-5.20); White Blood Count 10.3 Thou/mm3 (3.6-11.0)
[2025-06-06 21:13] LABS: Base Excess, Venous 2 (-3-3); O2 Saturation, Venous 85 % (96-97); PCO2, Venous 32 mmHg (36-56); PO2, Venous 42 mmHg (15-58); pH, Venous 7.50 (7.33-7.66)
[2025-06-06 21:17] LABS: Beta Hydroxybutyrate 0.1 mmol/L (<0.6)
[2025-06-06 21:31] LABS: Sed Rate (ESR) 18 mm/hr (0-20)
[2025-06-06 21:40] LABS: HCG,Qualitative Serum Negative
[2025-06-06 21:45] LABS: Alanine Aminotransferase 16 U/L (10-49); Albumin, Serum 4.5 gm/dL (3.5-5.0); Albumin/Globulin Ratio 1.5 (1.2-2.2); Alkaline Phosphatase 90 U/L (46-116); Anion Gap 10 (7-16); Aspartate Amino Transferase 22 U/L (0-34); BUN/Creatinine Ratio 10 Ratio (12-20); Bilirubin,Direct < 0.1 mg/dL (0.0-0.3); Bilirubin,Total 0.2 mg/dL (0.3-1.2); Blood Urea Nitrogen 8 mg/dL (9-23); Calcium 9.2 mg/dL (8.3-10.6); Calcium (Corrected) 9.2 mg/dL (8.5-10.1); Carbon Dioxide 25.0 mMol/L (20.0-31.0); Chloride 105 mMol/L (98-107); Creatinine (Component) 0.8 mg/dL (0.6-1.3); Globulin 3.0 gm/dL (2.3-3.5); Glucose 113 mg/dL (74-106); Magnesium 2.0 mg/dL (1.6-2.6); Osmolality,Calculated 278 (275-295); Potassium 3.7 mMol/L (3.4-5.1); Procalcitonin < 0.04 ng/ml (0.0-0.49); Sodium 140 mMol/L (136-145); Total Protein 7.5 gm/dL (5.7-8.2); Troponin I < 0.020 ng/mL (0.0-0.045); eGFR > 60 See Note
[2025-06-06 21:59] LABS: Glucose Estimated Average 123 mg/dL (80-131); Hemoglobin A1C 5.9 % Hgb (4.8-6.0)
[2025-06-06 22:07] LABS: C-Reactive Protein < 0.5 mg/dL (0.0-0.9)
[2025-06-06 22:41] VITALS: BP 122/78; PULSE 68; RESP 16; TEMP 36.6; O2SAT 100
== END 2025-06-06 22:41 | disposition home or self-care (01) ==
LOC: SERX 23:05
PROVIDERS: Emergency Provider Emergency Medicine
DX: F43.9 Reaction to severe stress, unspecified (principal); N39.0 Urinary tract infection, site not specified; R41.82 Altered mental status, unspecified; R06.02 Shortness of breath; R19.00 Intra-abdominal and pelvic swelling, mass and lump, unspecified site; R94.31 Abnormal electrocardiogram [ECG] [EKG]; R11.2 Nausea with vomiting, unspecified
CPT/HCPCS: 36415; 70450; 71045; 71250; 74176; 80053; 82010; 82248; 82803; 83036; 83735; 84145; 84484; 84703; 85025; 85652; 86140; 93005; 99283; Q0162; A9270